=== PATIENT | female | born 1940 | race Caucasian/White ===

== ENCOUNTER 2019-04-22 13:13 | Emergency (ER) | payer MEDICARE ==
[~2019-04-22] VITALS: Ht 170.2 cm; Wt 66.2 kg
[2019-04-22] MEDS ORDERED: IV NORMAL SALINE 1,000ML 1,000 ML IV ONE (14:15)
[2019-04-22 14:24] LABS: BASO # 0.1 x10^3/uL (0.0-0.2); BASO % 1 % (0-3); EOS # 0.1 x10^3/uL (0.0-0.7); EOS % 1 % (0-3); HEMATOCRIT 41.1 % (36.0-47.0); HEMOGLOBIN 13.6 g/dL (12.0-15.5); LYMPH # 1.4 x10^3/uL (1.0-4.8); LYMPH % 16 % (24-48); MEAN CORPUSCULAR HEMOGLOBIN 31 pg (25-35); MEAN CORPUSCULAR HGB CONC 33 g/dL (31-37); MEAN CORPUSCULAR VOLUME 92 fL (79-100); MONO # 0.8 x10^3/uL (0.0-1.1); MONO % 9 % (0-9); NEUT # 6.4 x10^3uL (1.8-7.7); NEUT % 72 % (31-73); PLATELET COUNT 245 x10^3/uL (140-400); RED BLOOD COUNT 4.44 x10^6/uL (3.50-5.40); RED CELL DISTRIBUTION WIDTH 13.8 % (11.5-14.5); WHITE BLOOD COUNT 8.8 x10^3/uL (4.0-11.0)
[2019-04-22 14:34] LABS: ALBUMIN 3.2 g/dL (3.4-5.0); ALBUMIN/GLOBULIN RATIO 0.9 (1.0-1.7); CALCIUM 8.8 mg/dL (8.5-10.1); CREATININE 0.9 mg/dL (0.6-1.0); GFR 60.7; POTASSIUM 4.2 mmol/L (3.5-5.1); TOTAL BILIRUBIN 0.4 mg/dL (0.2-1.0); TOTAL PROTEIN 6.7 g/dL (6.4-8.2)
[2019-04-22] MEDS ORDERED: METF500T16 PO (15:45)
[2019-04-22 15:50] LABS: BILIRUBIN,URINE NEG (NEG); CLARITY,URINE HAZY; COLOR,URINE YELLOW; GLUCOSE,URINE >=1000 mg/dL (NEG); UROBILINOGEN,URINE 0.2 mg/dL (0.2 mg/dL)
[2019-04-22 15:51] LABS: BACTERIA,URINE FEW /HPF (0-FEW); HYALINE CASTS, URINE FEW /HPF; NITRITE,URINE NEG (NEG); SQUAMOUS EPITHELIAL CELL,UR FEW /LPF
[2019-04-22] MEDS ORDERED: CEPH500T PO (15:55)
[2019-04-22 16:00] VITALS: BP 139/76
--- NOTE | 2019-04-22 17:46 | PHYS DOC ---
Past History Past Medical History: Other Past Surgical History: Hysterectomy, Other Additional Past Surgical Histo: KNEE, HIPS Alcohol Use: None Drug Use: None Adult General Chief Complaint Chief Complaint: HYPERGLYCEMIA HPI HPI Patient is a 78 (referred in from primary care doctor for elevated blood sugar blood sugar was over 300 she hasn't emergency room for evaluation. She has had over a year of progressive forgetfulness today she could not recognize her son at that was short-lived she recognizes them now the emergency room she has not had a fever recently. Otherwise no chest pain no abdominal pain she denies headache she has not trauma basically somebody at the front of her doctor's office and her to the emergency room for evaluation. After the ER workup did speak with Dr. Moore that we could start metformin he can follow-up with her about her high blood sugar. told this to The patient's son who are in agreement with the plan Review of Systems Review of Systems Constitutional: Denies fever or chills [] Eyes: Denies change in visual acuity, redness, or eye pain [] HENT: Denies nasal congestion or sore throat [] Respiratory: Denies cough or shortness of breath [] Cardiovascular: No additional information not addressed in HPI [] GI: Denies abdominal pain, nausea, vomiting, bloody stools or diarrhea [] : Denies dysuria or hematuria [] Musculoskeletal: Denies back pain or joint pain [] Integument: Denies rash or skin lesions [] Neurologic: Denies headache, focal weakness or sensory changes [] Endocrine: Denies polyuria or polydipsia [] All other systems were reviewed and found to be within normal limits, except as documented in this note. Current Medications Current Medications Current Medications Medications (Trade) Dose Ordered Sig/Leopoldo Start Time Stop Time Status Last Admin Dose Admin Sodium Chloride 1,000 ml @ 1,000 mls/hr 1X ONCE 04/22/19 14:15 04/22/19 15:14 DC 04/22/19 14:09 1,000 MLS/HR Allergies Allergies Allergies Coded Allergies Type Severity Reaction Last Updated Verified No Known Drug Allergies 04/22/19 No Physical Exam Physical Exam Constitutional: Well developed, well nourished, no acute distress, non-toxic appearance. [] HENT: Normocephalic, atraumatic, bilateral external ears normal, oropharynx moist, no oral exudates, nose normal. [] Eyes: PERRLA, EOMI, conjunctiva normal, no discharge. [] Neck: Normal range of motion, no tenderness, supple, no stridor. [] Cardiovascular:Heart rate regular rhythm, no murmur [] Lungs & Thorax: Bilateral breath sounds clear to auscultation [] Abdomen: Bowel sounds normal, soft, no tenderness, no masses, no pulsatile masses. [] Skin: Warm, dry, no erythema, no rash. [] Back: No tenderness, no CVA tenderness. [] Extremities: No tenderness, no cyanosis, no clubbing, ROM intact, no edema. [] Neurologic: Alert and oriented X 2, normal motor function, normal sensory function, no focal deficits noted. [] Psychologic: Affect normal, judgement normal, mood normal. [] Current Patient Data Vital Signs Vital Signs Date Time Temp Pulse Resp B/P (MAP) Pulse Ox O2 Delivery O2 Flow Rate FiO2 04/22/19 16:00 80 18 139/76 (97) 99 Room Air 04/22/19 13:36 97.8 * Mild Temperature (Fahrenheit): * 97.8 degrees F (97.6-99.5) Patient Temperature * 97.8 degrees F (97.5-99.5) Temperature Source * Oral Blood Pressure Systolic * 129 mm Hg (100-140) Blood Pressure Diastolic * 77 mm Hg (60-100) Blood Pressure Mean * 94 mm Hg Pulse Rate * 89 beats per minute (60-90) Respiratory Rate * 18 breaths per minute (12-24) Oxygen Delivery Method * Room Air Bedside Pulse Oximetry * 96 % Treatment Prior to Arrival * No Complaint of Pain * No Numeric Pain Scale * 0 LOC * Alert Coma Scale Eye Opening * 4-Spontaneous Coma Scale Motor Lab Results Laboratory Tests Test 04/22/19 13:34 04/22/19 14:08 04/22/19 14:49 04/22/19 15:11 Glucose (Fingerstick) 304 mg/dL (70-99) H 256 mg/dL (70-99) H White Blood Count 8.8 x10^3/uL (4.0-11.0) Red Blood Count 4.44 x10^6/uL (3.50-5.40) Hemoglobin 13.6 g/dL (12.0-15.5) Hematocrit 41.1 % (36.0-47.0) Mean Corpuscular Volume 92 fL (79-100) Mean Corpuscular Hemoglobin 31 pg (25-35) Mean Corpuscular Hemoglobin Concent 33 g/dL (31-37) Red Cell Distribution Width 13.8 % (11.5-14.5) Platelet Count 245 x10^3/uL (140-400) Neutrophils (%) (Auto) 72 % (31-73) Lymphocytes (%) (Auto) 16 % (24-48) L Monocytes (%) (Auto) 9 % (0-9) Eosinophils (%) (Auto) 1 % (0-3) Basophils (%) (Auto) 1 % (0-3) Neutrophils # (Auto) 6.4 x10^3uL (1.8-7.7) Lymphocytes # (Auto) 1.4 x10^3/uL (1.0-4.8) Monocytes # (Auto) 0.8 x10^3/uL (0.0-1.1) Eosinophils # (Auto) 0.1 x10^3/uL (0.0-0.7) Basophils # (Auto) 0.1 x10^3/uL (0.0-0.2) Sodium Level 137 mmol/L (136-145) Potassium Level 4.2 mmol/L (3.5-5.1) Chloride Level 100 mmol/L (98-107) Carbon Dioxide Level 25 mmol/L (21-32) Anion Gap 12 (6-14) Blood Urea Nitrogen 14 mg/dL (7-20) Creatinine 0.9 mg/dL (0.6-1.0) Estimated GFR (Cockcroft-Gault) 60.7 BUN/Creatinine Ratio 16 (6-20) Glucose Level 319 mg/dL (70-99) H Calcium Level 8.8 mg/dL (8.5-10.1) Total Bilirubin 0.4 mg/dL (0.2-1.0) Aspartate Amino Transferase (AST) 27 U/L (15-37) Alanine Aminotransferase (ALT) 26 U/L (14-59) Alkaline Phosphatase 124 U/L (46-116) H Total Protein 6.7 g/dL (6.4-8.2) Albumin 3.2 g/dL (3.4-5.0) L Albumin/Globulin Ratio 0.9 (1.0-1.7) L Urine Collection Type Unknown Urine Color Yellow Urine Clarity Hazy Urine pH 6.0 Urine Specific [place] 1.015 Urine Protein Neg (NEG-TRACE) Urine Glucose (UA) >=1000 mg/dL (NEG) Urine Ketones (Stick) 80 mg/dL (NEG) Urine Blood Neg (NEG) Urine Nitrite Neg (NEG) Urine Bilirubin Neg (NEG) Urine Urobilinogen Dipstick 0.2 mg/dL (0.2 mg/dL) Urine Leukocyte Esterase Neg (NEG) Urine RBC 1-2 /HPF (0-2) Urine WBC 5-10 /HPF (0-4) Urine Squamous Epithelial Cells Few /LPF Urine Bacteria Few /HPF (0-FEW) Urine Hyaline Casts Few /HPF EKG EKG [] Radiology/Procedures Radiology/Procedures [] Course & Med Decision Making Course & Med Decision Making Pertinent Labs and Imaging studies reviewed. (See chart for details) []Patient's blood sugar was improved after IV fluids we will prescribe antibiotics for possible mild UTI as well as metformin recommended follow-up with primary care doctor as noted above. No evidence of DKA patient is neurologically intact somewhat mild dementia otherwise intact Dragon Disclaimer Dragon Disclaimer This electronic medical record was generated, in whole or in part, using a voice recognition dictation system. Departure Departure: Impression: Primary Impression: Hyperglycemia Disposition: 01 HOME, SELF-CARE Condition: STABLE Patient Instructions: Hyperglycemia, Iink-cr-Sxiw Scripts Cephalexin (CEPHALEXIN) 500 Mg Tablet 1 TAB PO TID for uti, #30 TAB Prov: PATTY GIBBS MD 04/22/19 Metformin Hcl (METFORMIN HCL) 500 Mg Tablet 1 TAB PO BID for hyperglycemia, #60 TAB 0 Refills Prov: PATTY GIBBS MD 04/22/19 PATTY GIBBS MD Apr 22, 2019 17:46
[2019-04-27] MEDS ORDERED: INSU100I30 SQ (12:21)
[2019-04-27] MEDS ORDERED: INSU200I SQ (12:21)
== END 2019-04-22 16:01 | disposition home or self-care (01) ==
LOC: ER 13:13
DX: R73.9 Hyperglycemia, unspecified (principal)
CPT/HCPCS: 36415; 80053; 81001; 82947; 85025; 87086; 99284-25; J7030

== ENCOUNTER 2019-04-26 17:14 | Observation (INO) | payer MEDICARE ==
[~2019-04-26] VITALS: Ht 170.2 cm; Wt 74.4 kg
[~2019-04-26 17:14] MED LIST: CEPH500T PO; METF500T16 PO
[2019-04-26 17:29] VITALS: BP 146/76
[2019-04-26 18:10] LABS: BASO # 0.1 x10^3/uL (0.0-0.2); BASO % 1 % (0-3); EOS # 0.2 x10^3/uL (0.0-0.7); EOS % 2 % (0-3); HEMATOCRIT 41.2 % (36.0-47.0); HEMOGLOBIN 13.6 g/dL (12.0-15.5); LYMPH # 1.6 x10^3/uL (1.0-4.8); LYMPH % 15 % (24-48); MEAN CORPUSCULAR HEMOGLOBIN 31 pg (25-35); MEAN CORPUSCULAR HGB CONC 33 g/dL (31-37); MEAN CORPUSCULAR VOLUME 93 fL (79-100); MONO # 0.6 x10^3/uL (0.0-1.1); MONO % 6 % (0-9); NEUT # 8.3 x10^3uL (1.8-7.7); NEUT % 77 % (31-73); PLATELET COUNT 302 x10^3/uL (140-400); RED BLOOD COUNT 4.45 x10^6/uL (3.50-5.40); RED CELL DISTRIBUTION WIDTH 13.9 % (11.5-14.5); WHITE BLOOD COUNT 10.7 x10^3/uL (4.0-11.0)
[2019-04-26 18:18] LABS: ALBUMIN 3.3 g/dL (3.4-5.0); ALBUMIN/GLOBULIN RATIO 0.9 (1.0-1.7); CALCIUM 9.1 mg/dL (8.5-10.1); GFR 53.8; POTASSIUM 4.2 mmol/L (3.5-5.1); TOTAL BILIRUBIN 0.2 mg/dL (0.2-1.0); TOTAL PROTEIN 6.9 g/dL (6.4-8.2)
[2019-04-26] MEDS ORDERED: IOHEXOL 350 MG/ML 100 ML VIAL. IV ONE (18:45)
[2019-04-26 19:00] VITALS: BP 143/77
--- NOTE | 2019-04-26 19:09 | NUR ---
The patient, LORENE ARGUETA, 78 y/o, F admitted by CYNDEE GRAY MD, was given written information regarding hospital policies, unit procedures and contact persons. Valuables were checked and left in room. Patient ambulated to ICU 4 with daughter. Vitals, Labs and IV obtained at time of arrival. Dr Gray notified of arrival to unit. Patient states she is doing well and doesnt know why she has to be in the hospital. Spoke with daughter and patient is living at [facility] and will be moving to [facility] soon due to not being able to care for herself. contract administration manager and dietary consulted.
--- NOTE | 2019-04-26 19:21 | RAD ---
Exam: Chest 2 views INDICATION: Shortness of breath TECHNIQUE: Frontal and lateral views of the chest Comparisons: None FINDINGS: The cardiomediastinal silhouette and pulmonary vessels are within normal limits. The lung and pleural spaces are clear. IMPRESSION: No acute cardiopulmonary process. Electronically signed by: Loyda Sood MD (04/26/2019 7:18 PM) [facility]
[2019-04-26] MEDS: IV NORMAL SALINE 1,000ML 1,000 ML IV SCH ×2 (19:24→22:53)
[2019-04-26 20:00] VITALS: BP 150/79
--- NOTE | 2019-04-26 20:02 | RAD ---
Examination: CT angiography chest HISTORY: History of shortness of breath, elevated d-dimer TECHNIQUE: Axial CT angiographic images were performed with IV contrast. Coronal and sagittal 3-D MIP reformats are performed Exposure: One or more of the following individualized dose reduction techniques were utilized for this examination: 1. Automated exposure control 2. Adjustment of the mA and/or kV according to patient size 3. Use of iterative reconstruction technique FINDINGS: The central airways are patent. The ascending aorta measures 3.5 cm in transverse dimension. No radiologically significant mediastinal lymphadenopathy is identified. There is no evidence of filling defect identified in the main pulmonary arterial trunk and right and left main pulmonary arteries and the visualized lobar, segmental branches of the pulmonary arteries. Minimal bibasilar lung atelectasis. The liver, spleen, adrenals grossly appears unremarkable. Moderate degenerative changes thoracic spine. IMPRESSION: 1. No evidence of pulmonary embolism. 2. Minimal bibasilar lung atelectasis Electronically signed by: Salinas Persaud MD (04/26/2019 7:59 PM) [facility]
[2019-04-26] MEDS ORDERED: DEXTROSE 50% 25 GM / 50ML DISP.SYRIN. IV PRN (20:15)
[2019-04-26 21:00] VITALS: BP 145/77
[2019-04-26 22:00] VITALS: BP 138/70
[2019-04-26 23:00] VITALS: BP 147/81
[2019-04-27] VITALS (11 sets, daily range): BP systolic 107–158; BP diastolic 66–82
--- NOTE | 2019-04-27 00:19 | NUR ---
Nurses Note: Pt confused this HS and discontinued her IV, pulled all her monitors off, and was wondering. Pt has steady gait. Pt reoriented to surroundings, attempted to put in IV, pt refused any further attempts. Will attempt again in the am. Pt eating and drinking.
[2019-04-27] MEDS: IV NORMAL SALINE 1,000ML 1,000 ML IV SCH ×3 (01:54→08:20)
--- NOTE | 2019-04-27 06:11 | NUR ---
Shift Note: Pt is A/O to self only, requires reorientation often. Pt pulled her IV out during night, physician notified. Pt also pulled tele off numerous times. Pt drinking water and voiding clear yellow urine. pt did not have a bowel movement therefore fecal occult remains to be collected.
[2019-04-27 06:27] LABS: BASO # 0.1 x10^3/uL (0.0-0.2); BASO % 1 % (0-3); EOS # 0.2 x10^3/uL (0.0-0.7); EOS % 3 % (0-3); HEMATOCRIT 37.5 % (36.0-47.0); HEMOGLOBIN 12.4 g/dL (12.0-15.5); LYMPH # 1.7 x10^3/uL (1.0-4.8); LYMPH % 22 % (24-48); MEAN CORPUSCULAR HEMOGLOBIN 31 pg (25-35); MEAN CORPUSCULAR HGB CONC 33 g/dL (31-37); MEAN CORPUSCULAR VOLUME 92 fL (79-100); MONO # 0.4 x10^3/uL (0.0-1.1); MONO % 6 % (0-9); NEUT # 5.6 x10^3uL (1.8-7.7); NEUT % 69 % (31-73); PLATELET COUNT 263 x10^3/uL (140-400); RED BLOOD COUNT 4.08 x10^6/uL (3.50-5.40); RED CELL DISTRIBUTION WIDTH 13.6 % (11.5-14.5); WHITE BLOOD COUNT 8.1 x10^3/uL (4.0-11.0)
[2019-04-27 06:43] LABS: CALCIUM 8.5 mg/dL (8.5-10.1); CREATININE 0.7 mg/dL (0.6-1.0); GFR 81.1; POTASSIUM 3.5 mmol/L (3.5-5.1)
[2019-04-27] MEDS: INSULIN LISPRO 300 UNITS/3 ML VIAL. SQ SCH ×2 (08:30→11:54)
--- NOTE | 2019-04-27 11:19 | EKG ---
[address] [address] Test Date: 2019-04-26 Test Time: 19:18:18 Pat Name: LORENE ARGUETA Department: Room: [facility]04 1 Gender: F Manager Lean: LEONOR : 1940 Requested By: CYNDEE GRAY Order Number: [id number] Reading MD: Measurements Intervals [place] Rate: 68 P: 57 NC: 176 QRS: -17 QRSD: 80 T: 17 QT: 364 QTc: 387 Interpretive Statements SINUS RHYTHM LEFTWARD AXIS OTHERWISE NORMAL ECG RI6.02 No previous ECG available for comparison
[2019-04-27] MEDS ORDERED: INSU100I30 SQ (12:21)
[2019-04-27] MEDS ORDERED: INSU200I SQ (12:21)
--- NOTE | 2019-04-27 13:21 | NUR ---
Patient d/c home with family with plans to move patient to [place] to be closer to family members in a [facility]. Patient and patient family is given all discharge teaching and prescriptions. Patients monitor removed and all belongings taken with patient at time of D/C patient is stable at time of D/C. Patient ambulated off unit accompanied by family.
[2019-04-28 03:06] LABS: HEMOGLOBIN A1C 14.1 % (4.8-5.6)
--- NOTE | 2019-04-29 22:57 | DS ---
DATE OF DISCHARGE: 04/27/2019 HOSPITAL COURSE: A 78-year-old female came in after losing 20 pounds of weight. The patient was noted to become increasingly dehydrated, was failing outpatient therapies. She does have some dementia. The patient did show ketones in her urine and as a result of this, the patient was brought in for rehydration as well as control of her blood sugar. Ketones were at 80. The patient's blood count was basically all within normal range. Chemistries did show an elevated hemoglobin A1c of 14.1 and a glucose fingerstick of 243. In the office it was over 360. She had been given dose of insulin while in the office. In any case, the patient's cholesterol was also noted to be over 276 and LDL 191. The patient did not want to take insulin and this made it more difficult to control her sugars although at first we did give her and then it came down but then with her complaint that she did not want to take it, this became a real challenge to get her sugars down without using insulin along with some nonsteroidals. The patient did have an elevated D-dimer, but her CTA showed no evidence of pulmonary emboli. In any case, she made fairly good progress. She does have signs of dementia. The family wanted to take care of her by sending her to a nursing facility locally for further evaluation and treatment. IMPRESSION: New onset of type 2 diabetes with diabetic ketoacidosis as well as dementia, hypercholesterolemia, mild protein malnutrition. Continue to monitor the patient. Diabetic diet, decreased activity, and make further evaluation on her at the nursing facility. CYNDEE GRAY MD DR: MALLY/eric JOB#: [id number] / [id number]
== END 2019-04-27 13:02 | disposition home or self-care (01) ==
LOC: ICU 17:14 → INTOOBSV 17:14
PROVIDERS: ADMIT Family Medicine; ATTEND Family Medicine
DX: E11.10 Type 2 diabetes mellitus with ketoacidosis without coma (principal); E87.2 Acidosis; E11.65 Type 2 diabetes mellitus with hyperglycemia; E78.00 Pure hypercholesterolemia, unspecified; F02.80 Dementia in other diseases classified elsewhere, unspecified severity, without behavioral disturbance, psychotic disturbance, mood disturbance, and anxiety; E46 Unspecified protein-calorie malnutrition; Z68.25 Body mass index [BMI] 25.0-25.9, adult; Z85.42 Personal history of malignant neoplasm of other parts of uterus; Z85.038 Personal history of other malignant neoplasm of large intestine; Z90.710 Acquired absence of both cervix and uterus; Z90.49 Acquired absence of other specified parts of digestive tract; Z96.659 Presence of unspecified artificial knee joint; Z96.643 Presence of artificial hip joint, bilateral
CPT/HCPCS: 36415; 71046; 71275; 80048; 80053; 80061; 82010; 82947; 83036; 83605; 85025; 85379; 87086; 93005; 96360; 96361; 96372; G0378; G0379; J1815; Q9967; J7030

== ENCOUNTER 2020-03-10 14:05 | Inpatient (IN) | payer MEDICARE ==
[~2020-03-10] VITALS: Ht 170.2 cm; Wt 77.5 kg
[~2020-03-10 14:05] MED LIST changes: +INSU100I30 SQ; +INSU200I SQ
[2020-03-10] MEDS ORDERED: IV NORMAL SALINE 1,000ML 1,000 ML IV ONE (14:15)
[2020-03-10] MEDS ORDERED: 0.9 % SODIUM CHLORIDE 10 ML DISP.SYRIN. IV PRN (14:15)
--- NOTE | 2020-03-10 14:27 | PHYS DOC ---
Past History Past Medical History: Dementia, Diabetes, Other Past Surgical History: Hysterectomy, Other Additional Past Surgical Histo: KNEE, HIPS Alcohol Use: None Drug Use: None General Adult EDM: Chief Complaint: FATIGUE HPI: HPI: Patient is a 79-year-old female who arrives via EMS from [facility] with a chief complaint of generalized weakness and decreased p.o. intake. Patient had a fever of 100.7 earlier today. evidently the patient recently tested positive for COVID-19 however there was no report given from the [facility] and patient has a history of dementia and is unable to give us a history. History physical and review of systems are limited due to her dementia. Review of Systems: Review of Systems: Constitutional: Reports fever Eyes: Denies change in visual acuity HENT: Denies sore throat Respiratory: Denies shortness of breath Cardiovascular: Denies chest pain or edema GI: Denies abdominal pain, denies current nausea : Denies dysuria Musculoskeletal: Denies back pain or joint pain Integument: Denies rash Neurologic: Denies headache, focal weakness or sensory changes Endocrine: Denies polyuria or polydipsia Lymphatic: Denies swollen glands Psychiatric: Denies depression or anxiety Heart Score: Risk Factors: Risk Factors: DM, Current or recent (<one month) smoker, HTN, HLP, family h istory of CAD, obesity. Risk Scores: Score 0 - 3: 2.5% MACE over next 6 weeks - Discharge Home Score 4 - 6: 20.3% MACE over next 6 weeks - Admit for Clinical Observation Score 7 - 10: 72.7% MACE over next 6 weeks - Early Invasive Strategies Current Medications: Current Meds: Current Medications Medications (Trade) Dose Ordered Sig/Leopoldo Start Time Stop Time Status Last Admin Dose Admin Sodium Chloride 1,000 ml @ 1,000 mls/hr 1X ONCE 03/10/20 14:15 03/10/20 15:14 Sodium Chloride (Normal Saline Flush) 10 ml QSHIFT PRN 03/10/20 14:15 Allergies: Allergies: Allergies Coded Allergies Type Severity Reaction Last Updated Verified No Known Drug Allergies 04/22/19 No Physical Exam: PE: Constitutional: Well developed, well nourished, no acute distress, non-toxic appearance. [] HENT: Normocephalic, atraumatic, bilateral external ears normal, dry mucous membranes nose normal. [] Eyes: PERRLA, EOMI, conjunctiva normal, no discharge. [] Neck: Normal range of motion, no tenderness, supple, no stridor. [] No meningeal signs Cardiovascular mildly tachycardic regular rhythm peripheral pulse intact cap refill brisk Lungs & Thorax: Bilateral breath sounds clear, no respiratory distress Abdomen: soft, no tenderness, no masses, no pulsatile masses. [] Skin: Warm, dry, no erythema, no rash. [] Back: No tenderness, no CVA tenderness. [] Extremities: No tenderness, no cyanosis, no clubbing, ROM intact, no edema. [] Neurologic: Alert and oriented X 2, normal motor function, normal sensory function, no focal deficits noted. [] Psychologic: Affect normal, judgement normal, mood normal. [] Current Patient Data: Labs: Laboratory Tests Test 03/10/20 14:15 White Blood Count 7.4 x10^3/uL Red Blood Count 4.86 x10^6/uL Hemoglobin 14.4 g/dL Hematocrit 44.4 % Mean Corpuscular Volume 91 fL Mean Corpuscular Hemoglobin 30 pg Mean Corpuscular Hemoglobin Concent 33 g/dL Red Cell Distribution Width 14.3 % Platelet Count 222 x10^3/uL Neutrophils (%) (Auto) 71 % Lymphocytes (%) (Auto) 23 % Monocytes (%) (Auto) 6 % Eosinophils (%) (Auto) 0 % Basophils (%) (Auto) 1 % Neutrophils # (Auto) 5.2 x10^3uL Lymphocytes # (Auto) 1.7 x10^3/uL Monocytes # (Auto) 0.4 x10^3/uL Eosinophils # (Auto) 0.0 x10^3/uL Basophils # (Auto) 0.0 x10^3/uL Prothrombin Time 10.2 SEC Prothromb Time International Ratio 1.0 Activated Partial Thromboplast Time 26 SEC D-Dimer (Janet) 1.24 mg/L Sodium Level 136 mmol/L Potassium Level 3.3 mmol/L Chloride Level 99 mmol/L Carbon Dioxide Level 24 mmol/L Anion Gap 13 Blood Urea Nitrogen 18 mg/dL Creatinine 1.1 mg/dL Estimated GFR (Cockcroft-Gault) 48.0 BUN/Creatinine Ratio 16 Glucose Level 139 mg/dL Lactic Acid Level 1.6 mmol/L Calcium Level 8.4 mg/dL Total Bilirubin 0.4 mg/dL Aspartate Amino Transf (AST/SGOT) 61 U/L Alanine Aminotransferase (ALT/SGPT) 33 U/L Alkaline Phosphatase 70 U/L Lactate Dehydrogenase 351 U/L Creatine Kinase 1348 U/L Troponin I Quantitative < 0.017 ng/mL Total Protein 7.0 g/dL Albumin 3.1 g/dL Albumin/Globulin Ratio 0.8 Lipase 142 U/L Current Medications Medications (Trade) Dose Ordered Sig/Leopoldo Route PRN Reason Start Time Stop Time Status Last Admin Dose Admin Sodium Chloride (Normal Saline Flush) 10 ml QSHIFT PRN IV AFTER MEDS AND BLOOD DRAWS 03/10/20 14:15 Sodium Chloride 1,000 ml @ 1,000 mls/hr 1X ONCE IV 03/10/20 14:15 03/10/20 15:14 DC 03/10/20 15:48 Iohexol (Omnipaque 350 Mg/ml) 100 ml 1X ONCE IV 03/10/20 15:45 03/10/20 15:46 DC Ceftriaxone Sodium 1 gm/ Sodium Chloride 50 ml @ 100 mls/hr 1X ONCE IV 03/10/20 15:45 03/10/20 16:14 03/10/20 15:48 Azithromycin 500 mg/Sodium Chloride 250 ml @ 250 mls/hr 1X ONCE IV 03/10/20 15:45 03/10/20 16:44 03/10/20 15:49 Potassium Chloride (Klor-Con) 20 meq 1X ONCE PO 03/10/20 15:45 03/10/20 15:46 DC 03/10/20 15:47 Enoxaparin Sodium (Lovenox 80mg Syringe) 80 mg 1X ONCE SQ 03/10/20 15:45 03/10/20 15:46 DC 03/10/20 15:48 Sodium Chloride 250 ml @ As Directed STK-MED ONCE .ROUTE 03/10/20 15:42 03/10/20 15:42 DC Sodium Chloride 50 ml @ As Directed STK-MED ONCE .ROUTE 03/10/20 15:42 03/10/20 15:42 DC Azithromycin (Zithromax) 500 mg STK-MED ONCE IV 03/10/20 15:42 03/10/20 15:42 DC Ceftriaxone Sodium (Rocephin) 1 gm STK-MED ONCE .ROUTE 03/10/20 15:42 03/10/20 15:42 DC Vital Signs: Vital Signs Date Time Temp Pulse Resp B/P (MAP) Pulse Ox O2 Delivery O2 Flow Rate FiO2 03/10/20 14:18 98.9 101 18 105/56 (72) 93 Room Air EKG: EKG: [] EKG interpreted by me sinus tach with a rate of 104 left axis deviation inferior Q waves normal QTC nonspecific ST changes Radiology/Procedures: Radiology/Procedures: [][address] [address] IMAGING REPORT Signed PATIENT: LORENE ARGUETA ACCOUNT: [id number] : 1940 LOCATION: ER AGE: 79 SEX: F EXAM STATUS: REG ER ORD. PHYSICIAN: PA MARY MD REASON: fever, covid PROCEDURE: PORTABLE CHEST 1V Chest AP portable 03/10/2020. Reason for exam: Fever. Covid infection. Comparison is made with a study of 04/26/2019. Patchy infiltrate is suggested in the left midlung. There is no apparent pleural fluid. Heart size is normal. IMPRESSION: Suspected early left-sided infiltrate. Electronically signed by: Pedro Pierre Jr., MD (03/10/2020 3:20 PM) [id number] DICTATED AND SIGNED BY: PEDRO PIERRE Jr, MD DATE: 03/10/20 1520 CC: PA MARY MD; CYNDEE GRAY MD ~ [address] [address] IMAGING REPORT Signed PATIENT: LORENE ARGUETA ACCOUNT: [id number] : 1940 LOCATION: ER AGE: 79 SEX: F EXAM STATUS: REG ER ORD. PHYSICIAN: PA MARY MD REASON: covid, syncope PROCEDURE: CT ANGIOGRAPHY CHEST Exam performed: CT pulmonary angiogram of the chest with contrast. Date: 03/10/2020. Comparison:Single view chest from earlier today and a CT angiogram chest from April 26, 2019 Indication: Syncope, COVID. Technique: Contiguous helical acquisitions are obtained through the chest during intravenous administration of 100 cc of Isovue-370] . [Sagittal and coronal MIP images were obtained and reviewed Findings: The structures at the thoracic inlet including both lobes of the thyroid gland appear normal. Mildly prominent mediastinal lymph nodes are seen. Pulmonary arterial opacification is adequate to evaluate for pulmonary embolus. There is no evidence for pulmonary embolism. The heart is normal in size. No pericardial effusion is seen. Areas of groundglass opacity are seen in both lower and upper lobes. No pulmonary nodules are seen. There is no pleural effusion or pneumothorax. Upper abdominal structures appear unremarkable. Spondylotic changes and multilevel disc degenerative changes are seen. Impression: 1. The study is negative for pulmonary embolism. 2. Diffuse scattered areas of groundglass opacity throughout both lungs likely infiltrates. RS Compliance Statement: One or more of the following individualized dose reduction techniques were utilized for this examination: 1. Automated exposure control 2. Adjustment of the mA and/or kV according to patient size 3. Use of iterative reconstruction technique Electronically signed by: Cydney Grijalva MD (03/10/2020 4:39 PM) [facility] DICTATED AND SIGNED BY: CYDNEY GRIJALVA MD DATE: 03/10/20 3854 CC: PA MARY MD; CYNDEE GRAY MD ~ Course & Med Decision Making: Course & Med Decision Making Pertinent Labs and Imaging studies reviewed. (See chart for details) [] Call to the nursing facility reveals that reason EMS was called and she went unresponsive for 2 minutes. Patient tested positive for COVID 2 days ago. 79-year-old female with COVID-19 presents with low oxygen levels and a transient altered mental status possible syncopal event. Labs are consistent with COVID- 19 and she is got pneumonia on x-ray. Patient also has rhabdomyolysis. Patient will get fluids and will be admitted to the hospital patient clinically stable on reassessment. I discussed the case with Dr. Moore who will admit. Patient has elevated d-dimer therefore she will undergo a CT angiogram of the chest. Patient given dose of Lovenox in the ER. Dragon Disclaimer: Dragon Disclaimer: This electronic medical record was generated, in whole or in part, using a voice recognition dictation system. Departure Departure: Impression: Primary Impression: COVID-19 Additional Impressions: Syncope Pneumonia Rhabdomyolysis Disposition: 09 ADMITTED INPATIENT Admitting Physician: Cyndee Gray Condition: STABLE Referrals: CYNDEE GRAY MD (PCP) Justification of Admission: Justification of Admission: Justification of Admission Dx: Yes (pneumonia, covid, rhabdo) PA MARY MD Mar 10, 2020 14:27
--- NOTE | 2020-03-10 14:34 | EKG ---
[address] [address] Test Date: 2020-03-10 Test Time: 14:27:38 Pat Name: LORENE ARGUETA Department: Room: Gender: F Senior Web Developer: : 1940 Requested By: PA MARY Order Number: [id number] Reading MD: Ritchie Oates Measurements Intervals [place] Rate: 104 P: 64 MD: 154 QRS: -44 QRSD: 82 T: 16 QT: 336 QTc: 442 Interpretive Statements SINUS TACHYCARDIA ATRIAL PREMATURE COMPLEX(ES) Electronically Signed On 03-14-2020 12:32:48 CDT by Ritchie Oates
[2020-03-10 14:39] LABS: BASO % 1 % (0-3); EOS % 0 % (0-3); HEMATOCRIT 44.4 % (36.0-47.0); HEMOGLOBIN 14.4 g/dL (12.0-15.5); LYMPH # 1.7 x10^3/uL (1.0-4.8); LYMPH % 23 % (24-48); MEAN CORPUSCULAR HEMOGLOBIN 30 pg (25-35); MEAN CORPUSCULAR HGB CONC 33 g/dL (31-37); MEAN CORPUSCULAR VOLUME 91 fL (79-100); MONO # 0.4 x10^3/uL (0.0-1.1); MONO % 6 % (0-9); NEUT # 5.2 x10^3uL (1.8-7.7); NEUT % 71 % (31-73); PLATELET COUNT 222 x10^3/uL (140-400); RED BLOOD COUNT 4.86 x10^6/uL (3.50-5.40); RED CELL DISTRIBUTION WIDTH 14.3 % (11.5-14.5); WHITE BLOOD COUNT 7.4 x10^3/uL (4.0-11.0)
[2020-03-10 14:49] LABS: CALCIUM 8.4 mg/dL (8.5-10.1); CREATININE 1.1 mg/dL (0.6-1.0); POTASSIUM 3.3 mmol/L (3.5-5.1)
[2020-03-10 15:06] LABS: ALBUMIN 3.1 g/dL (3.4-5.0); ALBUMIN/GLOBULIN RATIO 0.8 (1.0-1.7); TOTAL BILIRUBIN 0.4 mg/dL (0.2-1.0)
--- NOTE | 2020-03-10 15:22 | RAD ---
Chest AP portable 03/10/2020. Reason for exam: Fever. Covid infection. Comparison is made with a study of 04/26/2019. Patchy infiltrate is suggested in the left midlung. There is no apparent pleural fluid. Heart size is normal. IMPRESSION: Suspected early left-sided infiltrate. Electronically signed by: Jm Pierre Jr., MD (03/10/2020 3:20 PM) [id number]
[2020-03-10] MEDS ORDERED: IV NORMAL SALINE 250ML 250 ML ONE (15:42)
[2020-03-10] MEDS ORDERED: AZITHROMYCIN 500 MG VIAL. IV ONE (15:42)
[2020-03-10] MEDS ORDERED: IV NORMAL SALINE 50ML 50 ML ONE (15:42)
[2020-03-10] MEDS ORDERED: cefTRIAXone SODIUM 1 GM VIAL ONE (15:42)
[2020-03-10] MEDS ORDERED: IOHEXOL 350 MG/ML 100 ML VIAL. IV ONE (15:45)
[2020-03-10] MEDS ORDERED: ENOXAPARIN ** NOTE DOSE ** SYRINGE SQ ONE (15:45)
[2020-03-10] MEDS ORDERED: POTASSIUM CHLORIDE 20 MEQ TABLET.ER. PO ONE (15:45)
[2020-03-10] MEDS ORDERED: AZITHROMYCIN 500 MG in IV NORMAL SALINE 250ML 250 ML IV ONE (15:45)
[2020-03-10] MEDS ORDERED: ONDANSETRON PF 4 MG/2 ML VIAL. IVP PRN (16:15)
--- NOTE | 2020-03-10 16:42 | RAD ---
Exam performed: CT pulmonary angiogram of the chest with contrast. Date: 03/10/2020. Comparison:Single view chest from earlier today and a CT angiogram chest from April 26, 2019 Indication: Syncope, COVID. Technique: Contiguous helical acquisitions are obtained through the chest during intravenous administration of 100 cc of Isovue-370] . [Sagittal and coronal MIP images were obtained and reviewed Findings: The structures at the thoracic inlet including both lobes of the thyroid gland appear normal. Mildly prominent mediastinal lymph nodes are seen. Pulmonary arterial opacification is adequate to evaluate for pulmonary embolus. There is no evidence for pulmonary embolism. The heart is normal in size. No pericardial effusion is seen. Areas of groundglass opacity are seen in both lower and upper lobes. No pulmonary nodules are seen. There is no pleural effusion or pneumothorax. Upper abdominal structures appear unremarkable. Spondylotic changes and multilevel disc degenerative changes are seen. Impression: 1. The study is negative for pulmonary embolism. 2. Diffuse scattered areas of groundglass opacity throughout both lungs likely infiltrates. PQRS Compliance Statement: One or more of the following individualized dose reduction techniques were utilized for this examination: 1. Automated exposure control 2. Adjustment of the mA and/or kV according to patient size 3. Use of iterative reconstruction technique Electronically signed by: Cydney Grijalva MD (03/10/2020 4:39 PM) [facility]
[2020-03-10 18:30] LABS: BILIRUBIN,URINE NEG (NEG); CLARITY,URINE HAZY; COLOR,URINE YELLOW; GLUCOSE,URINE NEG (NEG)
[2020-03-10 18:31] LABS: BACTERIA,URINE FEW /HPF (0-FEW); GRANULAR CASTS,URINE OCC /HPF; HYALINE CASTS, URINE OCC /HPF; NITRITE,URINE NEG (NEG); RBC,URINE OCC /HPF (0-2); SQUAMOUS EPITHELIAL CELL,UR FEW /LPF; UROBILINOGEN,URINE 0.2 mg/dL (0.2 mg/dL)
[2020-03-10 20:00] VITALS: BP 145/73
--- NOTE | 2020-03-10 20:45 | NUR ---
The patient, LORENE ARGUETA, 79 y/o, F admitted by CYNDEE GRAY MD, to room 105, was given written information regarding hospital policies, unit procedures and contact persons. The valuables that accompanied patient were her clothing and shoes, which were left in the room. Pt is confused, disoriented, pleasant and cooperative. Pt denies pain. Family contacted for medical history review. Medications were reviewed with physician; orders given and implemented.
[2020-03-10] MEDS ORDERED: MEMA10TA56 PO (20:50)
[2020-03-10] MEDS ORDERED: METF10007 PO (20:50)
[2020-03-10] MEDS ORDERED: HYDR200T5 PO (20:59)
[2020-03-10] MEDS ORDERED: DEXA4TAB PO (20:59)
[2020-03-10] MEDS ORDERED: AZIT250T6 PO (20:59)
[2020-03-10] MEDS ORDERED: DEXAMETHASONE 4 MG TABLET PO SCH ×2 (21:00→21:30)
[2020-03-10] MEDS: INSULIN LISPRO 300 UNITS/3 ML VIAL. SQ SCH (21:00)
[2020-03-10] MEDS ORDERED: DEXTROSE 50% 25 GM / 50ML DISP.SYRIN. IV PRN (21:15)
[2020-03-10] MEDS: IV NORMAL SALINE 1,000ML 1,000 ML IV SCH (22:21)
[2020-03-10] MEDS: ACETAMINOPHEN 325 MG TABLET PO PRN (22:22)
[2020-03-10] MEDS: HYDROXYCHLOROQUINE 200 MG TABLET PO SCH (22:23)
[2020-03-10 23:42] VITALS: BP 121/68
[2020-03-11] MEDS ORDERED: C.DIFF MED SCREEN BY RX. MC ONE (01:00)
[2020-03-11 06:01] VITALS: BP 117/70
[2020-03-11] MEDS: INSULIN LISPRO 300 UNITS/3 ML VIAL. SQ SCH ×2 (08:00→12:00)
[2020-03-11] MEDS ORDERED: LACTOBACILLUS RHAMNOSUS GG 1 CAPSULE. PO SCH (09:00)
[2020-03-11] MEDS ORDERED: AZITHROMYCIN 250 MG TABLET. PO SCH (09:00)
[2020-03-11] MEDS ORDERED: FLU VACC QS 2020-21(6MOS+)/PF 0.5 ML SYRINGE. VAX IM ONE (09:00)
[2020-03-11] MEDS: ACETAMINOPHEN 325 MG TABLET PO PRN (09:06)
[2020-03-11] MEDS: HYDROXYCHLOROQUINE 200 MG TABLET PO SCH (09:12)
[2020-03-11] MEDS: IV NORMAL SALINE 1,000ML 1,000 ML IV SCH ×2 (11:04→12:08)
[2020-03-11 11:23] VITALS: BP 111/70
[2020-03-11] MEDS ORDERED: ENOXAPARIN 40 MG/0.4 ML SYRINGE. SQ SCH (13:00)
--- NOTE | 2020-03-11 13:32 | HP ---
ADMIT DATE: 03/10/2020 HISTORY OF PRESENT ILLNESS: A 79-year-old female who came in from [facility]. Over there, the patient was noted to have some spells where apparently she passed out. The patient has severe dementia. She also has had a temperature of 100.7. The patient is positive for COVID-19 per [facility]'s fast test over there at [facility]. The patient came in through the Emergency Room and had a thorough workup. Because of her elevated temperatures, she was admitted for observation to further evaluate any possible complications of her COVID. She had already been placed on some medication for that including hydroxychloroquine, Z-ALAN and Decadron over at the nursing facility. PAST MEDICAL HISTORY: Includes dementia, Alzheimer type, hypercholesterolemia, history of partial pancreatectomy secondary to pancreatic cancer, appendectomy, hysterectomy, urinary tract infection, bilateral hip and knee replacements, influenza vaccine up-to-date. ALLERGIES: No known allergies. MEDICATIONS: As noted above. In addition to those, Namenda 10 mg b.i.d., metformin 1000 mg b.i.d., Tresiba and Humalog on sliding scale. SOCIAL HISTORY: No smoking, alcohol or drug use. She is a full code. REVIEW OF SYSTEMS: The patient denies any real problems. She says she feels real good, although she does have obvious signs of dementia and very forgetful thus. PHYSICAL EXAMINATION: GENERAL: The patient on exam is a very pleasant female, well developed, well nourished. VITAL SIGNS: Blood pressure 130/60, respiratory rate 18, pulse 94, afebrile. HEENT: The patient's head was atraumatic, normocephalic. Eyes: PERRLA without jaundice. Mouth and throat were normal. NECK: Supple, without JVD, carotids or thyromegaly. LUNGS: Diminished throughout, poor movement of air, but basically clear throughout. CARDIOVASCULAR: Regular sinus rhythm. ABDOMEN: Soft, nontender. EXTREMITIES: No clubbing, cyanosis or edema. NEUROLOGIC: Alert, but confused and somewhat disoriented. Extreme short-term memory problems. LABORATORY DATA: Blood sugars were monitored at 170. Lactic acid was normal. Sodium and potassium were 136 and 3.3, AST of 61, creatinine was elevated, but her troponins were negative. Albumin was low at 3.1. The patient had 5-10 whites. The patient continued to be monitored carefully. She did have a CTA, which was negative for PE, but she did have some areas of ground glass opacity throughout both lungs, likely infiltrates and that is why she is on the Z-ALAN. IMPRESSION: COVID-19 pneumonitis, hypokalemia, moderate protein malnutrition, leukorrhea. PLAN: The patient will be discharged back to the nursing care facility as she is stable here and continue on her home medications that were noted there at the [facility]. CYNDEE GRAY MD DR: MALLY/eric JOB#: [id number] / [id number]
--- NOTE | 2020-03-11 15:09 | NUR ---
PT DISCHARGED TO [facility]. PATIENT IS GIVEN ALL DISCHARGE INSTRUCTIONS, PAPERWORK, IV IS REMOVED TELE MONITOR D/C'D. PATIENT IS ESCORTED OFF OF UNIT ACCOMPANIED BY EMS.
--- NOTE | 2020-03-13 08:50 | NUR ---
IP: attempt to notify patient of COVID result, no answer, unable to leave call back message. Notified [facility] facility, [facility], of result.
== END 2020-03-11 14:55 | DRG 177 ==
LOC: ER 14:05 → 1 SOUTH 16:10
PROVIDERS: ADMIT Family Medicine; ATTEND Family Medicine
DX: U07.1 COVID-19 (principal); J12.89 Other viral pneumonia; E44.0 Moderate protein-calorie malnutrition; M62.82 Rhabdomyolysis; E11.9 Type 2 diabetes mellitus without complications; E78.00 Pure hypercholesterolemia, unspecified; E87.6 Hypokalemia; F02.80 Dementia in other diseases classified elsewhere, unspecified severity, without behavioral disturbance, psychotic disturbance, mood disturbance, and anxiety; G30.9 Alzheimer's disease, unspecified; N89.8 Other specified noninflammatory disorders of vagina; Z85.07 Personal history of malignant neoplasm of pancreas; Z90.411 Acquired partial absence of pancreas; Z90.710 Acquired absence of both cervix and uterus; Z96.643 Presence of artificial hip joint, bilateral; Z96.653 Presence of artificial knee joint, bilateral
CPT/HCPCS: 36415; 71045; 71275; 80053; 81001; 82550; 82947; 83605; 83615; 83690; 84484; 85025; 85379; 85610; 85730; 87040; 87086; 90471; 93005; 96365; 96368; 96372; J0456; J0696; J1650; J1815; J7050; J8540; Q9967; 90686; 99285-25; J7030; U0003-CS

== ENCOUNTER 2020-03-13 09:36 | Inpatient (IN) | payer MEDICARE ==
[~2020-03-13] VITALS: Ht 170.2 cm; Wt 80.3 kg
[2020-03-13] VITALS (7 sets, daily range): BP systolic 121–143; BP diastolic 65–94
[~2020-03-13 09:36] MED LIST changes: +AZIT250T6 PO; +DEXA4TAB PO; +HYDR200T5 PO; +MEMA10TA56 PO; +METF10007 PO
[2020-03-13] MEDS ORDERED: IV NORMAL SALINE 1,000ML 1,000 ML IV SCH (10:01)
--- NOTE | 2020-03-13 10:01 | PHYS DOC ---
Past History Past Medical History: Dementia, Diabetes, Other Past Surgical History: Hysterectomy, Other Additional Past Surgical Histo: KNEE, HIPS Alcohol Use: None Drug Use: None General Adult EDM: Chief Complaint: SHORTNESS OF BREATH HPI: HPI: 79-year-old female past medical history significant for Alzheimer's dementia, hyperlipidemia, partial pancreatectomy secondary to pancreatic cancer, and insulin-dependent diabetes, presents the ED from [place] with concern for pt not eating or drinking, pulse ox was 78%. Pt has no active complaints. Was discharged from [place] 2 days ago, admitted for evaluation/further workup due to positive covid test 03/11 and hypokalemia, (was treated with dex amethasone, azithromycin and hydroxychloroquine). Review of Systems: Review of Systems: Constitutional: Denies fever or chills Eyes: Denies change in visual acuity HENT: Denies nasal congestion or sore throat Respiratory: Denies cough or shortness of breath Cardiovascular: Denies chest pain or edema GI: Denies abdominal pain, nausea, vomiting, bloody stools or diarrhea : Denies dysuria Musculoskeletal: Denies back pain or joint pain Integument: Denies rash Neurologic: Denies headache, focal weakness or sensory changes Endocrine: Denies polyuria or polydipsia Lymphatic: Denies swollen glands Psychiatric: Denies depression or anxiety Heart Score: Risk Factors: Risk Factors: DM, Current or recent (<one month) smoker, HTN, HLP, family history of CAD, obesity. Risk Scores: Score 0 - 3: 2.5% MACE over next 6 weeks - Discharge Home Score 4 - 6: 20.3% MACE over next 6 weeks - Admit for Clinical Observation Score 7 - 10: 72.7% MACE over next 6 weeks - Early Invasive Strategies Allergies: Allergies: Allergies Coded Allergies Type Severity Reaction Last Updated Verified No Known Drug Allergies 04/22/19 No Physical Exam: PE: Constitutional: Well developed, well nourished, no acute distress, non-toxic appearance. [] HENT: Normocephalic, atraumatic, bilateral external ears normal, oropharynx moist, no oral exudates, nose normal. [] Eyes: PERRLA, EOMI, conjunctiva normal, no discharge. [] Neck: Normal range of motion, no tenderness, supple, no stridor. [] Cardiovascular: tachycardic, no murmur [] Lungs & Thorax: Bilateral breath sounds clear to auscultation []93% in 2L NC, 86% on ed arrival Abdomen: Bowel sounds normal, soft, no tenderness, no masses, no pulsatile masses. [] Skin: Warm, dry, no erythema, no rash. [] Back: No tenderness, no CVA tenderness. [] Extremities: No tenderness, no cyanosis, no clubbing, ROM intact, no edema. [] Neurologic: Alert and oriented X 3, normal motor function, normal sensory function, no focal deficits noted. [] Psychologic: Affect normal, judgement normal, mood normal. [] EKG: EKG: [] Initially met 98 bpm, no axis deviation, normal intervals, T wave inversion lead III, no ST elevations or ST depressions Radiology/Procedures: Radiology/Procedures: IMAGING REPORT Signed PATIENT: LORENE ARGUETA ACCOUNT: [id number] : 1940 LOCATION: ER AGE: 79 SEX: F EXAM STATUS: REG ER ORD. PHYSICIAN: SMILEY LYLES DO REASON: SOA WORSENING, ASTHMA, QUIT SMOKER PROCEDURE: PORTABLE CHEST 1V EXAM: PORTABLE CHEST 1V INDICATION: Reason: SOA WORSENING, ASTHMA, QUIT SMOKER / Spl. Instructions: / History: . TECHNIQUE: Single view COMPARISON: 03/10/2020 chest x-ray FINDINGS: The heart size is normal. The great vessels show aortic calcification and tortuosity. There is no hilar or mediastinal mass. Lungs show persistent ill-defined reticular opacities in the periphery of the left lung and generalized low lung volumes, unchanged in the interval. There is no pleural effusion or pneumothorax. There are no significant osseous abnormalities. IMPRESSION: Unchanged pulmonary infiltrates primarily in the left lung with no acute superimposed process. Electronically signed by: Liban Rivera MD (03/13/2020 10:38 AM) [id number] DICTATED AND SIGNED BY: LIBAN RIVERA MD DATE: 03/13/20 1038 CC: CYNDEE GRAY MD; SMILEY LYLES DO ~ Course & Med Decision Making: Course & Med Decision Making Pertinent Labs and Imaging studies reviewed. (See chart for details) Concern for sepsis 2/2 covid with hypoxia (on 5L NC at time of admission, increased wob), anorexia and failure to thrive with rhabdomyolysis and acute kidney injury. Troponin negative. AST slightly elevated at 95. Lactic acid 2.4. New leukocytosis of 13. Troponin wnl. D-dimer elavted. CXR with no new left sided infiltrates. D/w Dr. Moore who accepts admission to the ICU. Will cancel CT angios, consider IV fluids in order bilateral venous duplex of lower extremities. CT Angio of the chest to evaluate for pulmonary embolus will likely ordered in 24 hours once renal function has improved or if patient should show signs of decompensation or heart failure. Patient is full code. Dragon Disclaimer: [email or web address] Media Disclaimer: This electronic medical record was generated, in whole or in part, using a voice recognition dictation system. Departure Departure: Impression: Primary Impression: Acute respiratory failure with hypoxia Additional Impressions: Rhabdomyolysis due to COVID-19 ANKIT (acute kidney injury) Sepsis COVID-19 Disposition: ADMITTED INPATIENT Admitting Physician: Cyndee Gray Condition: GUARDED Referrals: CYNDEE GRAY MD (PCP) Justification of Admission: Justification of Admission: Justification of Admission Dx: Yes Sepsis: Hypoxemia SMILEY LYLES DO Mar 13, 2020 10:00
[2020-03-13] MEDS ORDERED: VANCOMYCIN 1.5 GM in IV NORMAL SALINE 500ML 500 ML IV ONE (10:15)
[2020-03-13] MEDS ORDERED: PIPERACILLIN/TAZOBACTAM 4.5 GM in IV NORMAL SALINE 50ML 50 ML IV ONE (10:15)
[2020-03-13] MEDS ORDERED: VANCOMYCIN 2 GM in IV NORMAL SALINE 500ML 500 ML IV ONE ×2 (10:15→21:00)
[2020-03-13 10:21] LABS: BASO % 0 % (0-3); EOS % 0 % (0-3); HEMATOCRIT 41.5 % (36.0-47.0); HEMOGLOBIN 13.4 g/dL (12.0-15.5); LYMPH # 0.7 x10^3/uL (1.0-4.8); LYMPH % 6 % (24-48); MEAN CORPUSCULAR HEMOGLOBIN 29 pg (25-35); MEAN CORPUSCULAR HGB CONC 32 g/dL (31-37); MEAN CORPUSCULAR VOLUME 92 fL (79-100); MONO # 0.9 x10^3/uL (0.0-1.1); MONO % 7 % (0-9); NEUT # 11.5 x10^3uL (1.8-7.7); NEUT % 88 % (31-73); PLATELET COUNT 248 x10^3/uL (140-400); RED BLOOD COUNT 4.53 x10^6/uL (3.50-5.40); RED CELL DISTRIBUTION WIDTH 14.2 % (11.5-14.5); WHITE BLOOD COUNT 13.1 x10^3/uL (4.0-11.0)
[2020-03-13 10:34] LABS: CALCIUM 8.7 mg/dL (8.5-10.1); CREATININE 1.4 mg/dL (0.6-1.0); GFR 36.4
--- NOTE | 2020-03-13 10:40 | RAD ---
EXAM: PORTABLE CHEST 1V INDICATION: Reason: SOA WORSENING, ASTHMA, QUIT SMOKER / Spl. Instructions: / History: . TECHNIQUE: Single view COMPARISON: 03/10/2020 chest x-ray FINDINGS: The heart size is normal. The great vessels show aortic calcification and tortuosity. There is no hilar or mediastinal mass. Lungs show persistent ill-defined reticular opacities in the periphery of the left lung and generalized low lung volumes, unchanged in the interval. There is no pleural effusion or pneumothorax. There are no significant osseous abnormalities. IMPRESSION: Unchanged pulmonary infiltrates primarily in the left lung with no acute superimposed process. Electronically signed by: Jermaine Rivera MD (03/13/2020 10:38 AM) [id number]
[2020-03-13] MEDS ORDERED: IV NORMAL SALINE 50ML 50 ML ONE (10:43)
[2020-03-13] MEDS ORDERED: PIPERACILLIN/TAZOBACTAM 4.5 GM VIAL IV ONE (10:43)
[2020-03-13 10:50] LABS: ALBUMIN 3.2 g/dL (3.4-5.0); ALBUMIN/GLOBULIN RATIO 0.9 (1.0-1.7); TOTAL BILIRUBIN 0.4 mg/dL (0.2-1.0); TOTAL PROTEIN 6.7 g/dL (6.4-8.2)
[2020-03-13 11:10] LABS: C REACTIVE PROTEIN 146.5 mg/L (0-3.3); MAGNESIUM 1.8 mg/dL (1.8-2.4); PHOSPHORUS 2.8 mg/dL (2.6-4.7)
[2020-03-13] MEDS ORDERED: IV NORMAL SALINE 1,000ML 1,000 ML IV ONE (11:30)
--- NOTE | 2020-03-13 11:34 | EKG ---
[address] [address] Test Date: 2020-03-13 Test Time: 11:10:15 Pat Name: LOREEN ARGUETA Department: Room: Gender: F Icd 9 Coder: : 1940 Requested By: SMILEY LYLES Order Number: [id number] Reading MD: Ritchie Oates Measurements Intervals [place] Rate: 98 P: 48 CO: 170 QRS: -6 QRSD: 92 T: 22 QT: 340 QTc: 436 Interpretive Statements SINUS RHYTHM LEFTWARD AXIS LOW LIMB LEAD VOLTAGE Electronically Signed On 03-14-2020 12:21:23 CDT by Ritchie Oates
[2020-03-13 11:45] LABS: BILIRUBIN,URINE SMALL (NEG); CLARITY,URINE CLEAR; COLOR,URINE YELLOW; GLUCOSE,URINE 100 mg/dL (NEG)
[2020-03-13 11:46] LABS: BACTERIA,URINE 0 /HPF (0-FEW); NITRITE,URINE NEG (NEG); SQUAMOUS EPITHELIAL CELL,UR MOD /LPF; UROBILINOGEN,URINE 0.2 mg/dL (0.2 mg/dL)
[2020-03-13 11:54] LABS: INFLUENZA A PATIENT NEGATIVE (NEGATIVE); INFLUENZA B PATIENT NEGATIVE (NEGATIVE)
[2020-03-13] MEDS: IV NORMAL SALINE 1,000ML 1,000 ML IV SCH ×2 (12:44→20:59)
--- NOTE | 2020-03-13 13:41 | RAD ---
Examination: Bilateral Lower Extremity Venous Doppler Ultrasound History: Elevated d-dimer , Leg swelling Comparison: None Procedure: Michael scale, color flow 2D and spectal waveform analysis images are obtained with and without compression in the area of the common femoral vein, superficial femoral vein - femoral vein junction, main femoral vein (superficial femoral vein) and popliteal vein. Veins of the proximal calf are also imaged. Findings: There is normal duplex flow, color flow and compressibility of all visualized vein segments. No evidence of deep venous thrombus is present. Impression: No evidence of DVT in the bilateral lower extremity venous system. Electronically signed by: Salinas Persaud MD (03/13/2020 1:38 PM) [id number]
--- NOTE | 2020-03-13 16:11 | NUR ---
PT ORIENTED TO ROOM AND UNIT, BED LOW AND LOCKED, SIDE RAILS UPX3, CALL LIGHT IN REACH. TELE APLLIED AND REVEALS NSR. WILL PLACE ON COVID PRECAUTIONS AND CONTINUE TO ASSESS.
[2020-03-13] MEDS ORDERED: PIP/TAZO PER PHARMACY MC PRN (18:00)
[2020-03-13] MEDS ORDERED: DEXTROSE 50% 25 GM / 50ML DISP.SYRIN. IV PRN (19:00)
--- NOTE | 2020-03-13 19:04 | HP ---
ADMIT DATE: 03/13/2020 HISTORY OF PRESENT ILLNESS: A 79-year-old female recently discharged with COVID-19 back to the transition unit or at the care home over at [place]. However, apparently the patient came in with deterioration of such with oxygen saturation had dropped down to 78%. This is an acute changes that was not noted then, although at that time, she had COVID-19. She was placed on the protocol of dexamethasone, Zithromax, and hydroxychloroquine. The patient was seen in the Emergency Room. A very thorough workup was performed including chest x-ray, which showed unchanged pulmonary infiltrates, but review shows very minimal infiltrates and lower extremity Dopplers, which were negative for any type of clot. The patient basically has severe dementia of Alzheimer type and consequently has not shown any improvement there, but shows a consistent dementia of Alzheimer type picture with extreme short-term memory deficits. The patient was admitted for possible sepsis as her lactic acid was elevated at 2.4 and ferritin was high, C-reactive protein 146. Sodium, potassium 137 and 4, BUN and creatinine of 26 and 1.4, glucose was 270, CPK of 3700, BNP of 1100, white count of 13,000. PAST MEDICAL HISTORY: In any case, the patient's past medical history includes neurological disorders, Alzheimer's disease, cardiac disorders, hypercholesterolemia, history of partial pancreatectomy secondary to pancreatic cancer, appendectomy, hysterectomy, multiple urinary tract infections, bilateral hip and knee replacements. No known allergies. Her medications are as noted earlier. FAMILY HISTORY: Noncontributory. ALLERGIES: No known drug allergies. MEDICATIONS: As noted on the home medications, Zithromax, hydroxychloroquine, Namenda, dexamethasone, metformin, insulin long-acting Tresiba and KwikPen Humalog short-acting. SOCIAL HISTORY: The patient used to be a smoker. Denies any recent alcohol use and apparently is still a full code. REVIEW OF SYSTEMS: She is unable to really deny any problems per se. She just currently shakes her head. No chest pain or other pains was noted, otherwise unable to give any type of history. PHYSICAL EXAMINATION: VITAL SIGNS: The patient's blood pressure 143/94, respiratory rate 30 to 20 to16, pulse 90. She had run a temperature upwards of 99.1. HEENT: The patient's head was atraumatic, normocephalic. Eyes: PERRLA without jaundice. The mouth and throat were normal. LUNGS: Diminished, primarily in the bases. The patient was at 93% on 2 liters. ABDOMEN: The patient's abdomen is soft, nontender, no rebound or guarding. Positive bowel sounds, no hepatosplenomegaly. No aortic bruits. Surgical scars noted. EXTREMITIES: No clubbing, cyanosis, no edema noted. SKIN: Warm and dry. NEUROLOGIC: Alert, decreased memory function. Affect basically unremarkable. LABORATORY DATA: EKG reviewed. Chest x-ray showed unchanged pulmonary infiltrates were noted as ground glass appearance on her other admission. IMPRESSION: In any case, impression therefore of sepsis, COVID-19 had been positive out at the [facility], shortness of air, acute respiratory failure; dementia of Alzheimer type, history of pancreatic cancer, and essential hypertension. PLAN: As above. We will put her on sepsis protocol with IV antibiotic therapy, fluids, and monitor accordingly. CYNDEE GRAY MD DR: MALLY/eric JOB#: [id number] / [id number]
[2020-03-13] MEDS: VANCOMYCIN PER PHARMACY MC PRN (19:59)
--- NOTE | 2020-03-13 20:00 | NUR ---
Pharmacy Vancomycin Dosing Note S:Consulted to monitor and dose vancomycin started 03/13/20. O:LORENE ARGUETA is a 79 year old F with HCAP Height: 5 feet, 7 inches Weight: 77.5 kg Dosing Weight: Actual Other Antibiotics: ZOSYN 3.375 Q6H LABS: Last BUN: 26 Last Creatinine: 1.4 Creatinine Clearance: 35.5 Last WBC: 13.1 Vancomycin Dosing: Loading Dose: 2000 mg x1 Dosing Weight: Actual Target Trough: 15-20 A: Based on: Pt resides in shelter and was admitted to ICU last week, concern for HCAP. Additionally, COVID positive. P: 1. Begin Vancomycin 1250 mg IV q24h 2. Follow up Trough level on 03/15/20 at 2030 3. Pharmacy will continue to monitor, follow and adjust therapy as needed. VANESA ESTEVEZ, 03/13/201999
[2020-03-13] MEDS: ENOXAPARIN 40 MG/0.4 ML SYRINGE. SQ SCH (20:58)
[2020-03-13] MEDS: DEXAMETHASONE 4 MG TABLET PO SCH (20:58)
[2020-03-13] MEDS ORDERED: NON FORMULARY ITEM (Insulin Lispro (Humalog Kwikpen) 200 UNIT) SQ SCH (21:00)
[2020-03-14] VITALS (17 sets, daily range): BP systolic 102–132; BP diastolic 55–77
--- NOTE | 2020-03-14 01:40 | NUR ---
Pt attempting to climb out of bed at change of shift, removed all wires and pulled IV out by accident while "trying to go over to that corner to pee." Pt assisted up to BSC x1 assist, very unsteady. New IV started in right AC, pt tolerated well. Pt A&Ox2, very forgetful and impulsive, hx Dementia. Pt took HS medication whole and ate 2 bites of her HS snack independently. Pt received IVFs, Zosyn & Vanco during shift as scheduled, due for Babatunde TrNaila on 03/15 at 2030. Pt slept on & off during night, up a few times to urinate on BSC but most of the time had already gone in her brief. Bed Alarm on. Pt had recent +Covid result on 03/10, placed in precautions, DCd only 2 days ago from here back to [place].
[2020-03-14] MEDS: IV NORMAL SALINE 1,000ML 1,000 ML IV SCH (03:35)
[2020-03-14] MEDS: PIPERACILLIN/TAZOBACTAM 3.375 GM in IV NORMAL SALINE 50ML 50 ML IV SCH ×5 (05:35→23:59)
[2020-03-14 06:17] LABS: BASO % 0 % (0-3); EOS % 0 % (0-3); HEMATOCRIT 37.6 % (36.0-47.0); HEMOGLOBIN 12.1 g/dL (12.0-15.5); LYMPH # 0.6 x10^3/uL (1.0-4.8); LYMPH % 5 % (24-48); MEAN CORPUSCULAR HEMOGLOBIN 30 pg (25-35); MEAN CORPUSCULAR HGB CONC 32 g/dL (31-37); MEAN CORPUSCULAR VOLUME 92 fL (79-100); MONO # 0.5 x10^3/uL (0.0-1.1); MONO % 3 % (0-9); NEUT # 13.1 x10^3uL (1.8-7.7); NEUT % 92 % (31-73); PLATELET COUNT 259 x10^3/uL (140-400); RED BLOOD COUNT 4.09 x10^6/uL (3.50-5.40); RED CELL DISTRIBUTION WIDTH 14.3 % (11.5-14.5); WHITE BLOOD COUNT 14.3 x10^3/uL (4.0-11.0)
[2020-03-14 06:19] LABS: CALCIUM 7.8 mg/dL (8.5-10.1); GFR 53.6; POTASSIUM 3.8 mmol/L (3.5-5.1)
[2020-03-14] MEDS: HYDROXYCHLOROQUINE (PROGRAM) 200 MG TABLET PO SCH ×2 (08:19→20:30)
[2020-03-14] MEDS: DEXAMETHASONE 4 MG TABLET PO SCH ×2 (08:19→20:30)
[2020-03-14 08:33] LABS: % ATYL 1 % (0-0); % BANDS 11 % (0-9); % LYMPHS 2 % (24-48); % MONOS 1 % (0-10); % SEGS 85 % (35-66); PLT ESTIMATE ADEQUATE (ADEQUATE)
[2020-03-14 08:34] LABS: POLYCHROMASIA PRESENT; TOXIC GRANULATION PRESENT; TOXIC VACUOLATION PRESENT
--- NOTE | 2020-03-14 08:38 | NUR ---
IP: patient known hx COVID-19, requires contact and airborne precautions.
[2020-03-14] MEDS: LACTOBACILLUS RHAMNOSUS GG 1 CAPSULE. PO SCH ×2 (09:00→20:30)
[2020-03-14] MEDS ORDERED: NON FORMULARY ITEM (Insulin Degludec (Tresiba Flextouch U-100) 100 UNIT) SQ SCH (09:00)
[2020-03-14] MEDS ORDERED: AZITHROMYCIN 250 MG TABLET. PO SCH (09:00)
[2020-03-14] MEDS: INSULIN LISPRO 300 UNITS/3 ML VIAL. SQ SCH ×3 (09:09→17:33)
[2020-03-14] MEDS ORDERED: ENOXAPARIN 40 MG/0.4 ML SYRINGE. SQ SCH (12:00)
--- NOTE | 2020-03-14 16:26 | NUR ---
patient has been very pleasant today, cooperative with cares. Dr. Farnsworth made rounds and was notified of positive blood cultures. [facility], Yinka called for an update on patient, this RN provided update. Yinka stated that "we have a lot to do with patient before she comes back to the facility! and that she would be talking with Dr. Farnsworth herself." This RN spoke with patient's daughter this morning and this afternoon with updates per her request.
[2020-03-14] MEDS: ENOXAPARIN 40 MG/0.4 ML SYRINGE. SQ SCH (20:30)
[2020-03-14] MEDS ORDERED: VANCOMYCIN 1.25 GM in IV NORMAL SALINE 250ML 250 ML IV SCH (21:00)
[2020-03-15] VITALS (10 sets, daily range): BP systolic 122–147; BP diastolic 61–74
--- NOTE | 2020-03-15 05:00 | NUR ---
Pt awake in bed watching TV at change of shift, calm and pleasant. Pt A&Ox3, can be forgetful at times but improved from last night. Pt took HS medication whole and ate her HS snack independently. Spoke with daughter on phone, update given. Pt seemed to sleep better tonight compared to last night, less restless only up twice to urinate on BSC. Pt wore O2 at 3L NC all shift, O2 sat on ear is 92-96%, low if taken on fingers. Pt refused bath this AM, stating "its to cold for all that." Bed Alarm on.
[2020-03-15] MEDS: PIPERACILLIN/TAZOBACTAM 3.375 GM in IV NORMAL SALINE 50ML 50 ML IV SCH ×3 (05:33→18:47)
[2020-03-15] MEDS: INSULIN LISPRO 300 UNITS/3 ML VIAL. SQ SCH ×3 (08:00→16:52)
[2020-03-15] MEDS: LACTOBACILLUS RHAMNOSUS GG 1 CAPSULE. PO SCH ×2 (09:13→20:23)
[2020-03-15] MEDS: DEXAMETHASONE 4 MG TABLET PO SCH ×2 (09:13→20:23)
--- NOTE | 2020-03-15 09:41 | PN ---
DATE: SUBJECTIVE: A 79-year-old female, came in with sepsis. She has COVID-19 from [place]. The patient came in, positive blood cultures. The patient was placed on IV Zosyn and vancomycin. Feels a little better this morning. Says she is feeling a lot stronger. PHYSICAL EXAMINATION: VITAL SIGNS: Include that of 120/67, respiratory rate 20, pulse 70, afebrile, oxygen 2 liters 95. GENERAL: The patient is alert and oriented, more so than usual. HEENT: The patient's head was atraumatic, normocephalic. LUNGS: Diminished throughout. Poor movement of air, but clear. CARDIOVASCULAR: Regular sinus rhythm, S1, S2. ABDOMEN: Soft, nontender. No rebounding or guarding. Positive bowel sounds. EXTREMITIES: No clubbing, cyanosis, nor edema. Had a recent CTA. The patient had been discontinued Zithromax per pharmacy and continue to monitor the patient on her hydroxychloroquine, vancomycin and Zosyn along with the dexamethasone. Anyway, she is feeling better. We will continue to monitor her accordingly and make further evaluation on her as indicated per those results. IMPRESSION: Sepsis; COVID-19; acute respiratory distress; dementia, Alzheimer type. Lab shows white count 14,000, 11 bands. Chemistry stable, 17 and 1. Blood sugars elevated (____), D-dimer elevated. Recent CTA was negative. We will continue with IV antibiotic therapy, close monitoring in the ICU. CYNDEE GRAY MD DR: MALLY/eric JOB#: [id number] / [id number]
--- NOTE | 2020-03-15 19:31 | PN ---
DATE: SUBJECTIVE: This is a 79-year-old female who came in with COVID-19, sepsis, acute respiratory distress, dementia Alzheimer type. Lab studies show white count of 14,000, 11 bands, although there is marked improvement in that. The patient otherwise seems to be holding her own and seems to be a little bit more alert today. The patient had venous Dopplers negative for DVT, although she has some swelling down there. PHYSICAL EXAMINATION: VITAL SIGNS: The patient's blood pressure 128/67, respiratory rate 21, pulse 60, afebrile. PLAN: The patient has to maintain on 4 liters of oxygen. We will continue to monitor the patient accordingly and make further evaluation per those results. CYNDEE GRAY MD DR: MALLY/eric JOB#: [id number] / [id number]
[2020-03-15] MEDS: ENOXAPARIN 40 MG/0.4 ML SYRINGE. SQ SCH (20:23)
[2020-03-15 20:41] LABS: VANC TR 11.7 mcg/mL (10.0-20.0)
[2020-03-15] MEDS ORDERED: IPRATRPIUM/ALBUTEROL 0.5/2.5MG 3 ML NEBU. NEB SCH (21:00)
[2020-03-15] MEDS: IPRATROPIUM/ALBUTEROL 20/100mcg/INH INHALER. INH SCH (21:32)
[2020-03-15] MEDS: VANCOMYCIN 1.5 GM in IV NORMAL SALINE 500ML 500 ML IV SCH (21:33)
[2020-03-15] MEDS: VANCOMYCIN PER PHARMACY MC PRN (21:56)
--- NOTE | 2020-03-15 21:58 | NUR ---
Pharmacy Vancomycin Dosing Note S:Consulted to monitor and dose vancomycin started 03/13/20. O:LORENE ARGUETA is a 79 year old F with HCAP, . Height: 5 feet, 7 inches Weight: 81.4 kg [place] Body Weight: 61.60 Adjusted Body Weight: 69.52 Dosing Weight: Actual Other Antibiotics: ZOSYN 3.375 Q6H LABS: Last BUN: 17 Last Creatinine: 1.0 Creatinine Clearance: 50.88 Last WBC: 14.3 Drug Levels: Last Trough level: 11.7 on 03/15/20 at 2030 Last dose given 03/15/20 at 2130 Vancomycin Dosing: Loading Dose: 2000 mg x1 Dosing Weight: Actual Target Trough: 15-20 A: Based on: Trough, renal function, and indication P: 1. Begin Vancomycin 1500 mg IV q24h 2. Follow up Trough level on 03/17/20 at 2100 3. Pharmacy will continue to monitor, follow and adjust therapy as needed. AMNA TEIXEIRA, 03/15/20 [id number]
[2020-03-16] MEDS: PIPERACILLIN/TAZOBACTAM 3.375 GM in IV NORMAL SALINE 50ML 50 ML IV SCH ×5 (00:01→21:20)
[2020-03-16 01:50] VITALS: BP 126/58
[2020-03-16 03:55] VITALS: BP 138/62
[2020-03-16 05:35] VITALS: BP 138/70
--- NOTE | 2020-03-16 05:35 | NUR ---
Pt awake in bed staring out window at change of shift, stating "that tree moves so nice with the wind blowing." Pt has eric calm, cooperative and pleasant with all cares and assessments. Pt A&Ox3, can be forgetful at times but much improved compared to the last two night. Pt took HS medication whole and ate only 2-3 bites of applesauce for her HS snack. Pt was continent of both bowel and bladder this entire shift, had a brown loose BM this AM. Pt wore O2 at 3-4L NC during shift, but occasionally found removing it from nose, O2 sat on ear is 91-93%, low if taken on fingers. Pt given bath this AM, before being transferred to [facility] room 125 via wheelchair. All belongings moved with pt. Pt orientated to room, bed and call light. Bed alarm on.
[2020-03-16 06:00] LABS: BASO % 0 % (0-3); EOS % 0 % (0-3); HEMATOCRIT 38.2 % (36.0-47.0); HEMOGLOBIN 12.4 g/dL (12.0-15.5); LYMPH # 0.6 x10^3/uL (1.0-4.8); LYMPH % 6 % (24-48); MEAN CORPUSCULAR HEMOGLOBIN 30 pg (25-35); MEAN CORPUSCULAR HGB CONC 32 g/dL (31-37); MEAN CORPUSCULAR VOLUME 92 fL (79-100); MONO # 0.5 x10^3/uL (0.0-1.1); MONO % 5 % (0-9); NEUT # 9.6 x10^3uL (1.8-7.7); NEUT % 90 % (31-73); PLATELET COUNT 356 x10^3/uL (140-400); RED BLOOD COUNT 4.16 x10^6/uL (3.50-5.40); RED CELL DISTRIBUTION WIDTH 14.6 % (11.5-14.5); WHITE BLOOD COUNT 10.7 x10^3/uL (4.0-11.0)
[2020-03-16 06:02] LABS: CALCIUM 7.9 mg/dL (8.5-10.1); CREATININE 0.9 mg/dL (0.6-1.0); GFR 60.6; POTASSIUM 3.6 mmol/L (3.5-5.1)
[2020-03-16] MEDS: IPRATROPIUM/ALBUTEROL 20/100mcg/INH INHALER. INH SCH ×4 (08:00→20:00)
[2020-03-16] MEDS: LACTOBACILLUS RHAMNOSUS GG 1 CAPSULE. PO SCH ×2 (08:23→20:00)
[2020-03-16] MEDS: DEXAMETHASONE 4 MG TABLET PO SCH ×2 (08:23→19:55)
[2020-03-16] MEDS: INSULIN LISPRO 300 UNITS/3 ML VIAL. SQ SCH ×3 (08:24→17:47)
[2020-03-16 11:00] VITALS: BP 124/82
[2020-03-16] MEDS ORDERED: FUROSEMIDE 20 MG/2 ML VIAL IVP ONE ×2 (13:15→17:30)
[2020-03-16] MEDS ORDERED: ENOXAPARIN 40 MG/0.4 ML SYRINGE. SQ SCH (13:30)
[2020-03-16 13:44] LABS: BGAS PH 7.44 (7.35-7.45)
--- NOTE | 2020-03-16 14:10 | RAD ---
Examination: CHEST AP ONLY History: Reason: soa / Comparison: 03/13/2020. Findings: AP portable upright frontal view of the chest was obtained. Heart size is normal. Patchy infiltrates involve the right lung base and left midlung as well as base region in particular. Interstitial infiltrates throughout these regions noted. No pneumothorax. Pulmonary vasculature is borderline. No significant pleural effusion. Spurring of the right humeral head is noted. IMPRESSION: Significant infiltrates bilaterally are seen and have developed since the previous exam. Notable increase in left lateral mid lung infiltrate. Electronically signed by: Franklin Maciel MD (03/16/2020 2:07 PM) [id number]
[2020-03-16 14:27] VITALS: BP 142/76
[2020-03-16] MEDS ORDERED: AZITHROMYCIN 250 MG TABLET. PO ONE (19:00)
--- NOTE | 2020-03-16 19:25 | PN ---
DATE: SUBJECTIVE: The patient in with COVID-19, acute respiratory failure. The patient got extremely dyspneic this afternoon. The patient has been on 4 liters. Otherwise, seems to be resting fairly comfortably without any major complaints except for her dyspnea. The patient was given a small dose of Lasix, which seemed to help her. She is also septic with her COVID-19 and left shift, although her labs seem to be improving with the IV protocol. OBJECTIVE: VITAL SIGNS: Blood pressure 142/76, respiratory rate 20, pulse 72. GENERAL: Afebrile. The patient is alert, but confused baseline for her. LUNGS: Diminished. CARDIOVASCULAR: Regular sinus rhythm, S1, S2. ABDOMEN: Soft, nontender. EXTREMITIES: No clubbing, cyanosis. Trace edema. The patient also apparently had a blood culture, but had a Staphylococcus hominis in it, possible contaminant, sensitive to the vancomycin that she is on. PLAN: The patient will continue on the vancomycin and Zosyn, both of those are IV and continue to monitor the patient accordingly on her overall situation there. IMPRESSION: Sepsis, COVID-19, bacteremia. PLAN: As above. Continue to monitor the patient on IV antibiotic therapy, aggressive pulmonary toilet and make further evaluation. Repeat chest x-ray today shows significant infiltrates bilaterally seen and have developed since previous exam in the left lateral lung, but she is both on vancomycin and Zosyn and we will continue to monitor that change. Blood pressure was stable at 142/76, respiratory rate 20, pulse 72, afebrile, getting variable oximetry readings anywhere from 93-83 (NC), blood gas, I believe was a venous stick as the pH was 7.44, however, the pO2 was only 39. Influenza was negative. IMPRESSION: Sepsis, COVID-19, bacteremia, hypoxia, pneumonia of unspecified etiology. PLAN: As above. CYNDEE GRAY MD DR: MALLY/eric JOB#: [id number] / [id number]
[2020-03-16] MEDS: ENOXAPARIN 40 MG/0.4 ML SYRINGE. SQ SCH (19:56)
[2020-03-16 21:08] VITALS: BP 138/78
[2020-03-16] MEDS: VANCOMYCIN 1.5 GM in IV NORMAL SALINE 500ML 500 ML IV SCH (21:13)
--- NOTE | 2020-03-17 04:17 | NUR ---
PT UP TO BR SEVERAL TIMES, TO PEE AND TO HAVE MODERATE AMT OF LOOSE BM. PT DENIES PAIN. DOES GET SOB WITH EXERTION. SATS WERE <90% ON 4 LITERS. PT IS NOW A DNR. LOTS OF FRIENDS AND FAMILY MEMBERS WERE CALLING ALL NIGHT WITH THOUGHTS THAT PT WAS GOING TO TONIGHT. PT DOES NOT PRESENT WITH IMMINENT S/S OF AT THIS PARTICULAR TIME. IT WAS EXPLAINED TO THE FAMILY MEMEBERS/FRIENDS ABOUT THE USE OF THE PERSONAL CODE AND HIPPA VIOLATIONS. POOR PROGRESS TOWARDS DC GOALS,. WILL CONTINUE TO MONITOR.
[2020-03-17 06:00] VITALS: BP 124/82
[2020-03-17 06:29] LABS: BASO % 0 % (0-3); EOS % 0 % (0-3); HEMATOCRIT 38.2 % (36.0-47.0); HEMOGLOBIN 12.2 g/dL (12.0-15.5); LYMPH # 0.9 x10^3/uL (1.0-4.8); LYMPH % 7 % (24-48); MEAN CORPUSCULAR HEMOGLOBIN 29 pg (25-35); MEAN CORPUSCULAR HGB CONC 32 g/dL (31-37); MEAN CORPUSCULAR VOLUME 91 fL (79-100); MONO # 0.4 x10^3/uL (0.0-1.1); MONO % 3 % (0-9); NEUT # 11.3 x10^3uL (1.8-7.7); NEUT % 90 % (31-73); PLATELET COUNT 344 x10^3/uL (140-400); RED BLOOD COUNT 4.18 x10^6/uL (3.50-5.40); RED CELL DISTRIBUTION WIDTH 14.3 % (11.5-14.5); WHITE BLOOD COUNT 12.6 x10^3/uL (4.0-11.0)
[2020-03-17] MEDS: PIPERACILLIN/TAZOBACTAM 3.375 GM in IV NORMAL SALINE 50ML 50 ML IV SCH ×3 (06:33→17:56)
[2020-03-17 06:45] LABS: CALCIUM 7.9 mg/dL (8.5-10.1); CREATININE 0.9 mg/dL (0.6-1.0); GFR 60.6; POTASSIUM 3.5 mmol/L (3.5-5.1)
[2020-03-17] MEDS: INSULIN LISPRO 300 UNITS/3 ML VIAL. SQ SCH ×3 (08:00→17:00)
[2020-03-17] MEDS: IPRATROPIUM/ALBUTEROL 20/100mcg/INH INHALER. INH SCH ×4 (08:00→20:45)
[2020-03-17] MEDS: DEXAMETHASONE 4 MG TABLET PO SCH ×2 (08:50→20:43)
[2020-03-17] MEDS: LACTOBACILLUS RHAMNOSUS GG 1 CAPSULE. PO SCH ×2 (08:50→20:43)
[2020-03-17] MEDS: AZITHROMYCIN 250 MG TABLET. PO SCH (08:50)
[2020-03-17 08:56] LABS: % BANDS 2 % (0-9); % LYMPHS 6 % (24-48); % METAS 2 % (0-0); % MONOS 5 % (0-10); % SEGS 85 % (35-66); TOXIC GRANULATION PRESENT; TOXIC VACUOLATION PRESENT
[2020-03-17 08:57] LABS: PLT ESTIMATE ADEQUATE (ADEQUATE); POLYCHROMASIA SLIGHT
[2020-03-17 10:31] VITALS: BP 153/85
--- NOTE | 2020-03-17 11:09 | NUR ---
PT HAVING A HARD TIME KEEPING OXYGEN SATURATION UP. PLACE ON NON REBREATHER AND TURN TO 15LITERS. RT COME TO ASSESS PT AND TITRATED OXYGEN. PT NOT TOLERATING MASK AND WANTING TO TAKE OFF MASK. SPOKE WITH DR. GRAY WHO SPOKE WITH FAMILY AND INSTRUCTED TO KEEP PT COMFORTABLE WITH MINIMAL OXYGEN AND NOTHING INVASIVE. PLACE PT ON 4LNC AND PT IS MORE COMFORTABLE AND HAPPY THAT NONREBREATHER IS OFF. WILL CONTINUE TO ASSESS
--- NOTE | 2020-03-17 12:10 | NUR ---
SPOKE WITH DAUGHTER TO INFORM OF PT'S CONDITION AND SHE REINFORCED THAT PT IS A DNR AND NOT TO DO ANYTHING INVASIVE AND KEEP PT COMFORTABLE.
[2020-03-17 14:40] VITALS: BP 149/64
--- NOTE | 2020-03-17 17:20 | NUR ---
HELD SSI TODAY PT IS NOT EATING VERY MUCH. SPOKE WITH DR. GRAY AND OBTAIN ORDER FOR MORPHINE TO EASE AIR HUNGER.
[2020-03-17] MEDS: MORPHINE SULFATE 2 MG/ML DISP.SYRIN. IV PRN ×2 (17:55→20:44)
[2020-03-17 20:28] VITALS: BP 136/83
[2020-03-17] MEDS: ENOXAPARIN 40 MG/0.4 ML SYRINGE. SQ SCH (20:45)
--- NOTE | 2020-03-17 21:30 | PN ---
DATE: SUBJECTIVE: The patient with sepsis, COVID-19. She says she is feeling a little better, but of course, the patient has marked neurocognitive disorders and has problems comprehending anything, but her lungs do sound improved. She will keep her oxygen on, stays in the mid-80s, but she feels comfortable with that. OBJECTIVE: VITAL SIGNS: Her blood pressure 120/80, respiratory rate 18, pulse 83, afebrile, 87%, although as noted, she keeps a nasal cannula on intermittently. LUNGS: Otherwise, the patient's lungs are basically diminished, but clear than they have been. CARDIOVASCULAR: Regular sinus rhythm. ABDOMEN: Soft, nontender, no rebound or guarding. EXTREMITIES: No clubbing, cyanosis or edema. NEUROLOGIC: Baseline for her with Alzheimer disease as indicated. IMPRESSION: Sepsis, COVID-19, neurocognitive disorders, acute respiratory failure, history of pancreatic cancer, and essential hypertension. CYNDEE GRAY MD DR: MALLY/eric JOB#: [id number] / [id number]
[2020-03-17 21:33] LABS: VANC TR 12.5 mcg/mL (10.0-20.0)
[2020-03-17] MEDS: VANCOMYCIN 1.5 GM in IV NORMAL SALINE 500ML 500 ML IV SCH (22:21)
[2020-03-17 22:57] VITALS: BP 142/80
[2020-03-18] MEDS: MORPHINE SULFATE 2 MG/ML DISP.SYRIN. IV PRN ×2 (04:35→17:38)
--- NOTE | 2020-03-18 05:29 | NUR ---
PT INCONTINENT OF URINE. PT DESATS WITH ANY EXERTION. WHEN TURNING PT TO CHANGE BRIEF IN BED, PT SPO2 DROPPED INTO THE 70'S. PT NOT RECOVERING ON 6L VIA NC. PT GIVEN PRN MORPHINE FOR AIR HUNGER AND PLACED ON NRB AT 15L, SAT IMPROVED TO 88% AND PT MUCH MORE COMFORTABLE. DR. GRAY NOTIFIED OF PT STATUS AND NEW ORDERS FOR HERRERA CATHETER AND ATIVAN 0.5MG PRN Q4HRS FOR ANXIETY RECEIVED. RT AT BEDSIDE ASSESSING PT CURRENTLY.
[2020-03-18 05:57] VITALS: BP 118/82
[2020-03-18] MEDS: PIPERACILLIN/TAZOBACTAM 3.375 GM in IV NORMAL SALINE 50ML 50 ML IV SCH ×4 (05:58→17:31)
[2020-03-18] MEDS: IPRATROPIUM/ALBUTEROL 20/100mcg/INH INHALER. INH SCH ×4 (08:00→20:00)
[2020-03-18] MEDS: INSULIN LISPRO 300 UNITS/3 ML VIAL. SQ SCH ×3 (08:00→16:31)
[2020-03-18] MEDS: VANCOMYCIN PER PHARMACY MC PRN (08:55)
--- NOTE | 2020-03-18 08:56 | NUR ---
Pharmacy Vancomycin Dosing Note S:Consulted to monitor and dose vancomycin started 03/13/20. O:LORENE ARGUETA is a 79 year old F with Sepsis, . Height: 5 feet, 7 inches Weight: 80.6 kg [place] Body Weight: 61.60 Adjusted Body Weight: 68.96 Dosing Weight: Actual Other Antibiotics: ZOSYN 3.375GM Q6HRS LABS: Last BUN: 13 Last Creatinine: 0.9 Creatinine Clearance: 50.88 Last WBC: 12.6 Last Procalcitonin: Tmax (past 24 hours): Microbiology: I/O: Drug Levels: Last Trough level: 12.5 on 03/17/20 at 2100 Last dose given 03/19/20 at 2130 Vancomycin Dosing: Loading Dose: 2000 mg x1 Dosing Weight: Actual Target Trough: 15-20 A: Based on: P: 1. Change to Vancomycin 1750 mg IV q24h from 1500mg q24h 2. Follow up Trough level on 03/20/20 at 2100 3. Pharmacy will continue to monitor, follow and adjust therapy as needed. JOSE MIGUEL MONZON RPH, 03/18/20 [id number]
[2020-03-18] MEDS ORDERED: FUROSEMIDE 20 MG/2 ML VIAL IVP SCH (09:00)
[2020-03-18 10:16] VITALS: BP 127/69
[2020-03-18] MEDS: DEXAMETHASONE 4 MG TABLET PO SCH ×2 (12:07→21:00)
[2020-03-18] MEDS: AZITHROMYCIN 250 MG TABLET. PO SCH (12:07)
[2020-03-18] MEDS: LACTOBACILLUS RHAMNOSUS GG 1 CAPSULE. PO SCH ×2 (12:07→21:00)
[2020-03-18 14:24] VITALS: BP 132/75
--- NOTE | 2020-03-18 17:45 | NUR ---
PATIENTS O2 SAT CONTINUES TO DECLINE. PATIENTS O2 SAT IS 76% ON 15L ON NON REBREATHER. PATIENT DENIES PAIN. NO INSULIN GIVEN ON THIS SHIFT PATIENT IS NOT EATING. PATIENT CONTINUES TO GET IV ZOSYN. PATIENT WAS UNABLE TO TAKE PO MEDICATIONS TODAY.PATIENT IS RESTING IN BED AT THIS TIME. WILL CONTINUE TO MONITOR.
[2020-03-18 19:00] VITALS: BP 120/65
[2020-03-18] MEDS: ENOXAPARIN 40 MG/0.4 ML SYRINGE. SQ SCH (21:11)
[2020-03-18] MEDS ORDERED: VANCOMYCIN 1.75 GM in IV NORMAL SALINE 500ML 500 ML IV SCH (21:30)
[2020-03-18 23:03] VITALS: BP 111/76
[2020-03-19] MEDS: PIPERACILLIN/TAZOBACTAM 3.375 GM in IV NORMAL SALINE 50ML 50 ML IV SCH ×2 (00:08→05:05)
--- NOTE | 2020-03-19 01:43 | NUR ---
Pt has been sleeping in her bed the majority of the shift. Pt has 15L O2 on with non rebreather mask. Pt's O2 fluctuates between mid 70s-mid 80s. Mitts placed on pt d/t her attempting to remove the mask. PO HS medications held. Pt woke up around 0100 and was restless. PRN Ativan administered at that time.
[2020-03-19 05:47] VITALS: BP 151/80
[2020-03-19] MEDS: MORPHINE SULFATE 2 MG/ML DISP.SYRIN. IV PRN ×2 (05:48→12:49)
[2020-03-19] MEDS: INSULIN LISPRO 300 UNITS/3 ML VIAL. SQ SCH (08:00)
--- NOTE | 2020-03-19 09:15 | PN ---
DATE: 03/18/2020 SUBJECTIVE: A 79-year-old female in with acute respiratory failure with hypoxia secondary to COVID-19, hyperglycemia, type 2 diabetes, acute kidney injury, acute on top of chronic diastolic heart failure, the patient also septic. The patient presently continued on antibiotics and the like. Again, discussed with family and they want the patient to be kept comfortable. We discussed with them in the a.m. about possible hospice placement. Otherwise, she is resting fairly comfortably. Nurses did an excellent job maintaining oxygen saturation up to 5 liters. The patient keeping on her oxygen. Blood pressure 132/75, respiratory rate up to 32, pulse 90, temperature up to 101.6. The patient is already on vancomycin and Zosyn. Presently, we will keep her comfortable. She is on particularly Palliative Care at the present time and will be kept comfortable as possible. 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 PLAN: To keep the patient as comfortable as possible. CYNDEE GRAY MD DR: MALLY/eric JOB#: [id number] / [id number]
[2020-03-19] MEDS: AZITHROMYCIN 250 MG TABLET. PO SCH (09:45)
[2020-03-19] MEDS: DEXAMETHASONE 4 MG TABLET PO SCH (09:45)
[2020-03-19] MEDS: LACTOBACILLUS RHAMNOSUS GG 1 CAPSULE. PO SCH (09:45)
[2020-03-19 11:09] VITALS: BP 155/83
[2020-03-19 15:23] VITALS: BP 146/82
[2020-03-19] MEDS: MORPHINE SULFATE 2 MG/ML DISP.SYRIN. IV SCH ×4 (15:23→18:00)
[2020-03-19 19:46] VITALS: BP 119/70
--- NOTE | 2020-03-19 23:04 | PN ---
DATE: 03/19/2020 SUBJECTIVE: The patient continues to deteriorate. The patient has pneumonia secondary to COVID-19. She also has severe dementia with Alzheimer type. PHYSICAL EXAMINATION: VITAL SIGNS: The patient's vital signs are being deteriorating and she has problems breathing, 15 liters nonrebreather at only 86%. The family does not want any aggressive therapy done, does not want rehabilitated. Blood pressure 120/70, respiratory rate 28, pulse 106, temperature 97.7. GENERAL: The patient otherwise basically unresponsive, but breathing heavily. LUNGS: Diminished, coarse breath sounds throughout, rhonchi noted. CARDIOVASCULAR: Tachycardic. ABDOMEN: Soft, diffuse tenderness. EXTREMITIES: No clubbing or edema. NEUROLOGIC: Unresponsive basically and showing severe deterioration there. The family will be discussed with the patient on hospice and make further assessment there. IMPRESSION: Sepsis, COVID-19, neurocognitive disorders, acute respiratory failure, history of pancreatic cancer, essential hypertension and hypoxia, pneumonia secondary to COVID-19, moderate protein malnutrition. CYNDEE GRAY MD DR: MALLY/eric JOB#: [id number] / [id number]
--- NOTE | 2020-03-20 10:19 | DS ---
DATE OF DISCHARGE: 03/19/2020 ADDENDUM HOSPITAL COURSE: The patient on 03/19/2020 has been discharged to the care of hospice. The patient is terminal unfortunately from a dementia with severe Alzheimer type and complications of COVID-19 and continuing pneumonia and respiratory failure. The family is in full agreement to the situation and the patient has become basically unconscious. She has been spiking temperatures and despite aggressive IV antibiotic therapy and other therapies. The patient deteriorated. The family did not want her intubated and she was a DNI/DNR and consequently, the patient was transferred basically to a hospice care from her medical bed. The patient is not arousable, very comatose basically, but on the same token resting comfortably. IMPRESSION: Dementia with Alzheimer type, sepsis, COVID-19 bacteremia, hypoxia, pneumonia of unspecified etiology, change in mental status, positive blood cultures with Staphylococcus hominis. PLAN: The patient will be kept as comfortable as possible and the hospice that has contract here at [facility] will assume her care for such. CYNDEE GRAY MD DR: MALLY/eric JOB#: [id number] / [id number]
== END 2020-03-19 21:30 | disposition hospice, inpatient (51) | DRG 871 ==
LOC: ER 09:36 → ICU 12:40 → 1 SOUTH 03-16 04:44
PROVIDERS: ADMIT Family Medicine; ATTEND Family Medicine
DX: A41.89 Other specified sepsis (principal); U07.1 COVID-19; J96.01 Acute respiratory failure with hypoxia; J12.89 Other viral pneumonia; M62.82 Rhabdomyolysis; N17.9 Acute kidney failure, unspecified; E44.0 Moderate protein-calorie malnutrition; E11.9 Type 2 diabetes mellitus without complications; E78.00 Pure hypercholesterolemia, unspecified; E78.5 Hyperlipidemia, unspecified; F02.80 Dementia in other diseases classified elsewhere, unspecified severity, without behavioral disturbance, psychotic disturbance, mood disturbance, and anxiety; G30.9 Alzheimer's disease, unspecified; I10 Essential (primary) hypertension; J45.909 Unspecified asthma, uncomplicated; Z79.4 Long term (current) use of insulin; Z85.07 Personal history of malignant neoplasm of pancreas; Z87.440 Personal history of urinary (tract) infections; Z87.891 Personal history of nicotine dependence; Z90.411 Acquired partial absence of pancreas; Z90.710 Acquired absence of both cervix and uterus; Z96.643 Presence of artificial hip joint, bilateral; Z96.653 Presence of artificial knee joint, bilateral; Z79.899 Other long term (current) drug therapy; B95.8 Unspecified staphylococcus as the cause of diseases classified elsewhere; Z66 Do not resuscitate; Z68.27 Body mass index [BMI] 27.0-27.9, adult
CPT/HCPCS: 36415; 36600; 71045; 80048; 80053; 80202; 81001; 82550; 82728; 82803; 82947; 83605; 83615; 83735; 83880; 84100; 84484; 85007; 85025; 85379; 85610; 85730; 86140; 87040; 87077; 87186; 87205; 87641; 87804; 93005; 93970; 96365; J0456; J1650; J1815; J2060; J2270; J2543; J3370; J7040; J7050; J8540; P9612; 99285-25; J7030

== ENCOUNTER 2020-03-19 21:46 | Inpatient (IN) | payer MEDICARE, OTHER ==
[~2020-03-19] VITALS: Ht 170.2 cm; Wt 80.3 kg
[2020-03-19] MEDS ORDERED: BISACODYL 10 MG SUPP.RECT PR PRN (22:30)
[2020-03-19] MEDS ORDERED: HYOSCYAMINE 0.125 MG TAB.RAPDIS PO PRN (22:30)
[2020-03-19] MEDS: IV NORMAL SALINE 1,000ML 1,000 ML IV SCH (23:00)
[2020-03-19] MEDS: MORPHINE SULFATE 30 MG/30 ML 30 ML IV PRN (23:30)
[2020-03-19 23:35] VITALS: BP 131/99
[2020-03-20] MEDS: ACETAMINOPHEN 650 MG SUPP.RECT. PR PRN ×2 (06:20→18:05)
[2020-03-20 08:00] VITALS: BP 88/60
[2020-03-20] MEDS: MORPHINE SULFATE 30 MG/30 ML 30 ML IV PRN (12:52)
[2020-03-20 16:20] VITALS: BP 118/66
[2020-03-20 21:21] VITALS: BP 109/54
[2020-03-20] MEDS: IV NORMAL SALINE 1,000ML 1,000 ML IV SCH (22:16)
[2020-03-21] MEDS: MORPHINE SULFATE 30 MG/30 ML 30 ML IV PRN ×3 (00:32→14:14)
[2020-03-21 02:22] VITALS: BP 97/62
[2020-03-21] MEDS: ACETAMINOPHEN 650 MG SUPP.RECT. PR PRN (15:26)
--- NOTE | 2020-03-26 09:41 | DS ---
DATE OF DISCHARGE: 03/21/2020 HOSPITAL COURSE: A 79-year-old patient had been placed on the skilled unit for generalized weakness, pneumonia and COVID-19. The patient had marked Alzheimer's contributing to this and had marked dementia. She had significant infiltrates in the lungs. The patient's family did not want any aggressive therapy performed on this patient. They were given the opportunity to transfer her for intubation at another institution, they refused. They felt because of the severity of the patient's Alzheimer's disease, the patient was basically completely disabled and dysfunctional. The patient was kept rest. She was placed on hospice care and she made resting comfortably until she . IMPRESSION: Sepsis, COVID-19 pneumonia, acute respiratory failure, history of pancreatic cancer, essential hypertension, severe Alzheimer's disease, hypoxia, pneumonia secondary to COVID-19, moderate protein malnutrition. The patient had been placed on hospice and was kept as comfortable as possible until her demise and the patient was released to the home of the family's choice and the family was consoled. CYNDEE GRAY MD DR: MALLY/eric JOB#: [id number] / [id number]
== END 2020-03-21 19:15 | DRG 871 ==
LOC: 1 SOUTH 21:46
PROVIDERS: ADMIT Family Medicine; ATTEND Family Medicine
DX: A41.89 Other specified sepsis (principal); U07.1 COVID-19; J12.89 Other viral pneumonia; J96.00 Acute respiratory failure, unspecified whether with hypoxia or hypercapnia; E44.0 Moderate protein-calorie malnutrition; I10 Essential (primary) hypertension; G30.9 Alzheimer's disease, unspecified; Z66 Do not resuscitate; F02.80 Dementia in other diseases classified elsewhere, unspecified severity, without behavioral disturbance, psychotic disturbance, mood disturbance, and anxiety; R09.02 Hypoxemia; Z79.899 Other long term (current) drug therapy; Z85.07 Personal history of malignant neoplasm of pancreas; Z68.27 Body mass index [BMI] 27.0-27.9, adult
CPT/HCPCS: J2060; J2270; Q5005; J7030